=== PATIENT | male | born 1945 | race Caucasian/White ===

== ENCOUNTER 2018-05-25 11:01 | Inpatient (IN) | payer OTHER ==
[2018-05-25 11:57] VITALS: BMI 28.1
--- NOTE | 2018-05-25 14:00 | HP ---
CIWA Score Nausea/Vomitin Muscle Tremors: 3 Anxiety: 4-Mod. Anxious/Guarded Agitation: 0-Normal Activity Paroxysmal Sweats: No Perspiration Orientation: 0-Oriented Tacttile Disturbances: 0-None Auditory Disturbances: 0-None Visual Disturbances: 0-None Headache: 0-None Present CIWA-Ar Total Score: 10 - Admission Criteria OASAS Guidelines: Admission for Medically Managed Detox: Requires at least one of the followin. CIWA greater than 12 2. Seizures within the past 24 hours 3. Delirium tremens within the past 24 hours 4. Hallucinations within the past 24 hours 5. Acute intervention needed for co occurring medical disorder 6. Acute intervention needed for co occurring psychiatric disorder 7. Severe withdrawal that cannot be handled at a lower level of care (continued vomiting, continued diarrhea, abnormal vital signs) requiring intravenous medication and/or fluids 8. Admission ROS S - HPI Allergies/Adverse Reactions: Allergies Allergy/AdvReac Type Severity Reaction Status Date / Time No Known Allergies Allergy Verified 05/25/18 12:34 History of Present Illness: pt here requesting detox from etoh use , reports 1 x 6-pk /day x 50 years 22 oz cans , starts drinking in the afternoons, reports tremors if not drinking , + blackouts , denies seizures , denies driving after drinking alcohol, latest use this morning , most recent detox 20 years ago . Reports he is unable to stop on his own , current symptoms as above. tobacco : quit 15 years ago PMHX : anxiety , depression , denies SI / HI ,htn planning to have heart surgery 06/06/18 for valve replacement . Meds : see list PSHX : denies SHx : lives alone, retired Exam Limitations: No Limitations - Ebola screening Have you traveled outside of the country in the last 21 days: No Have you had contact with anyone from an Ebola affected area: No Have you been sick,other than usual withdrawal symptoms: No Do you have a fever: No - Review of Systems Constitutional: Other (reports feeling tired) EENT: reports: No Symptoms Reported, Other (reading glasses) Respiratory: reports: No Symptoms reported Cardiac: reports: No Symptoms Reported GI: reports: No Symptoms Reported : reports: No Symptoms Reported Musculoskeletal: reports: No Symptoms Reported Integumentary: reports: No Symptoms Reported Neuro: reports: No Symptoms reported Endocrine: reports: No Symptoms Reported Psychiatric: reports: Orientated x3 (denies current SI / HI .) Patient History - Patient Medical History Hx Asthma: No Hx Chronic Obstructive Pulmonary Disease (COPD): No Hx Cardiac Disorders: No Hx Hypertension: Yes Hx Seizures: No Hx Diabetes: No Hx Gastrointestinal Disorders: No Hx Genitourinary Disorders: No Hx Sexually Transmitted Disorders: No Hx Renal Disease (ESRD): No Hx Depression: Yes Hx Suicide Attempt: No Hx Schizophrenia: No - Patient Surgical History Past Surgical History: No - PPD History Previous Implant?: No - Smoking Cessation Smoking history: Former smoker Have you smoked in the past 12 months: No If you are a former smoker, when did you quit?: 15 yrs ago Hx Chewing Tobacco Use: No Initiated information on smoking cessation: No - Substances Abused Alcohol Route: Oral Frequency: Daily Amount used: 8-9 CANS BEER Age of first use: 17 Date of Last Use: 05/25/18 Admission Physical Exam [facility] - Vital Signs Vital Signs: Vital Signs - 24 hr 05/25/18 11:54 Temperature 97.7 F Pulse Rate 66 Respiratory 20 Rate Blood Pressure 130/72 - Physical General Appearance: Yes: No Apparent Distress HEENTM: Yes: EOMI, Hearing grossly Normal, Normocephalic, Normal Voice Respiratory: Yes: Chest Non-Tender, Lungs Clear, Normal Breath Sounds Neck: Yes: No masses,lesions,Nodules, Trachea in good position Cardiology: Yes: Regular Rhythm, Regular Rate, S1, S2, Murmur Abdominal: Yes: Soft Genitourinary: Yes: Within Normal Limits Back: Yes: Normal Inspection Musculoskeletal: Yes: full range of Motion, Gait Steady Extremities: Yes: Normal Range of Motion, Non-Tender Neurological: Yes: Motor Strength 5/5, Finger to Nose (w/ difficulty), Depressed Affect - Diagnostic (1) Alcohol abuse Current Visit: Yes Status: Acute S Breath Alcohol Content Breath Alcohol Content: 0.050 Urine Drug Screen - Results Drug Screen Negative: Yes Inpatient Rehab Admission - Rehab Decision to Admit Inpatient rehab admission?: No
[2018-05-25] MEDS ORDERED: MAGNESIUM HYDROX 2400MG/30ML ORAL SUSPENSION 30 ML CUP PO PRN (15:08)
[2018-05-25] MEDS ORDERED: MAGNESIUM CITRATE 300 ML BOTTLE PO PRN (15:08)
[2018-05-25] MEDS ORDERED: BISMUTH SUBSALICYLATE 524 MG/30 ML UD PO PRN (15:08)
[2018-05-25] MEDS ORDERED: IBUPROFEN 400 MG TABLET (FP) PO PRN (15:08)
[2018-05-25] MEDS ORDERED: MELATONIN 5 MG TABLETS PO PRN (15:08)
[2018-05-25] MEDS ORDERED: MENTHOL/PHENOL 1 EACH UD MM PRN (15:08)
[2018-05-25] MEDS ORDERED: ACETAMINOPHEN 325 MG TABLET (FP) PO PRN ×2 (15:08)
[2018-05-25] MEDS ORDERED: chlordiazePOXIDE HCL 10 MG CAPSULE PO PRN (15:08)
[2018-05-25] MEDS ORDERED: MAG HYDROX/AL HYDROX/SIMETH 30 ML UNIT-DOSE CUP PO PRN (15:08)
[2018-05-25] MEDS: METOPROLOL TARTRATE 50 MG TABLET (FP) PO SCH (22:26)
[2018-05-25] MEDS: MIRTAZAPINE 15 MG TABLET (FP) PO SCH (22:26)
[2018-05-25] MEDS: TAMSULOSIN HCL 0.4 MG CAP PO SCH (22:26)
[2018-05-25] MEDS: ATORVASTATIN CA 20 MG TABLET (FP) PO SCH (22:27)
[2018-05-25] MEDS: chlordiazePOXIDE HCL 25 MG CAPSULE PO SCH (22:27)
[2018-05-25] MEDS: THIAMINE HCL 100 MG TABLET (FP) PO SCH (22:28)
[2018-05-26] MEDS: chlordiazePOXIDE HCL 25 MG CAPSULE PO SCH ×2 (06:31→13:07)
--- NOTE | 2018-05-26 09:34 | CONSULT ---
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 Refer to addiction counselor's summary for further information Medical History: Significant for hypertension, dyslipidemia and heart valve abnormality(pending surgery) Psychiatric History: Reports being diagnosed with MDD 3-5 years ago. Reports receiving outpatient psychiatric treatment at one of [facility] clinics. He is under the care of Dr Danika Burroughs and he is prescribed Prozac 60 mg po daily and Remeron 15 mg po HS. Denies previous psychiatric hospitalization or suicidal attempt. At present, denies experiencing depressive symptoms, S/H ideations. However, reports sleeping poorly without remeron Physical/Sexual Abuse/Trauma History: Denies history of emotional, physical or sexual abuse as well as DV relationship. Reports serving for 2 years in the [employer] approximately 20 years ago Additional Comment: Denies legal history Mental Status Exam - Mental Status Exam Alert and Oriented to: Time, Place, Person Patient Appearance: Well Groomed Mood: Hopeful, Euthymic Affect: Appropriate Patient Behavior: Cooperative Speech Pattern: Clear Voice Loudness: Normal Thought Process: Intact, Goal Oriented Thought Disorder: Not Present Hallucinations: Denies Suicidal Ideation: Denies Homicidal Ideation: Denies Insight/Judgement: Poor Sleep: Poorly Appetite: Good Muscle strength/Tone: Normal Gait/Station: Normal Psychiatric Findings - Problem List ([place] 1, 2,3) (1) MDD (major depressive disorder) Current Visit: Yes Status: Chronic (2) Alcohol-induced sleep disorder Current Visit: Yes Status: Acute (3) Alcohol dependence with uncomplicated withdrawal Current Visit: Yes Status: Acute (4) HTN (hypertension) Current Visit: Yes Status: Chronic (5) HLD (hyperlipidemia) Current Visit: Yes Status: Chronic (6) Cardiac valvulopathy Current Visit: Yes Status: Chronic - Initial Treatment Plan Initial Treatment Plan: 1) Continue Prozac 60 mg po daily and Remeron 15 mg po HS. 2) Continue inpatient detoxification
[2018-05-26] MEDS ORDERED: FLUoxetine HCL 20 MG CAPSULE (FP) PO SCH (10:00)
[2018-05-26] MEDS: ASPIRIN 81 MG CHEWABLE TABLETS PO SCH (10:25)
[2018-05-26] MEDS: PRENATAL VITAMINS W/ FOLIC ACID TABLET (FP) PO SCH (10:25)
[2018-05-26] MEDS: METOPROLOL TARTRATE 50 MG TABLET (FP) PO SCH ×2 (10:25→22:13)
[2018-05-26] MEDS: FLUoxetine HCL 20 MG CAPSULE (FP) PO SCH (10:26)
[2018-05-26 11:09] LABS: HEMATOCRIT 32.1 % (35.4-49); MCH 33.5 pg (25.7-33.7); MCHC 34.4 g/dl (32.0-35.9); MEAN CELL VOLUME 97.6 fl (80-96); MEAN PLT VOLUME 9.8 fl (7.5-11.1); PLATELET COUNT 173 K/MM3 (134-434); RBC 3.29 M/mm3 (4.00-5.60); WHITE BLOOD COUNT 5.3 K/mm3 (4.0-10.0)
[2018-05-26 11:48] LABS: ALBUMIN 3.9 g/dl (3.4-5.0); ALK PHOS 91 U/L (45-117); ANION GAP 8 MMOL/L (8-16); BILIRUBIN,TOTAL 0.6 mg/dL (0.2-1); BLOOD UREA NITROGEN 15 mg/dL (7-18); CALCIUM 8.8 mg/dL (8.5-10.1); CHLORIDE 102 mmol/L (98-107); CO2 25 mmol/L (21-32); CREATININE 1.4 mg/dL (0.55-1.3); GLUCOSE,RANDOM 152 mg/dL (74-106); POTASSIUM 4.2 mmol/L (3.5-5.1); SGOT/AST 71 U/L (15-37); SGPT/ALT 48 U/L (13-61); SODIUM 135 mmol/L (136-145); TOT PROT 6.8 g/dl (6.4-8.2)
--- NOTE | 2018-05-26 13:33 | PN ---
S CIWA - CIWA Score Nausea/Vomitin Muscle Tremors: 2 Anxiety: 2 Agitation: 2 Paroxysmal Sweats: 2 Orientation: 0-Oriented Tacttile Disturbances: 1-Very Mild Itch/Numbness Auditory Disturbances: 1-Very Mild Visual Disturbances: 0-None Headache: 2-Mild CIWA-Ar Total Score: 14 S Progress Note (SOAP) Subjective: alert,irritable,anxious,interrupted sleep,tremor Objective: 05/26/18 13:32 Vital Signs Temperature 98.2 F 05/26/18 10:00 Pulse Rate 72 05/26/18 10:00 Respiratory Rate 18 05/26/18 10:00 Blood Pressure 121/68 05/26/18 10:00 O2 Sat by Pulse Oximetry (%) 05/26/18 13:32 05/26/18 05/26/18 06:30 06:30 WBC 5.3 RBC 3.29 L Hgb 11.0 L Hct 32.1 L MCV 97.6 H MCHC 34.4 RDW 14.0 Plt Count 173 Sodium 135 L Potassium 4.2 Chloride 102 Carbon Dioxide 25 Anion Gap 8 BUN 15 Creatinine 1.4 H labs pending Assessment: 05/26/18 13:33 withdrawal symptom Plan: continue detox
[2018-05-26] MEDS: THIAMINE HCL 100 MG TABLET (FP) PO SCH (22:12)
[2018-05-26] MEDS: chlordiazePOXIDE 5 MG CAPSULE PO SCH (22:13)
[2018-05-26] MEDS: TAMSULOSIN HCL 0.4 MG CAP PO SCH (22:13)
[2018-05-26] MEDS: MIRTAZAPINE 15 MG TABLET (FP) PO SCH (22:13)
[2018-05-26] MEDS: ATORVASTATIN CA 20 MG TABLET (FP) PO SCH (22:13)
[2018-05-27] MEDS: chlordiazePOXIDE 5 MG CAPSULE PO SCH ×2 (05:58→14:20)
[2018-05-27] MEDS: FLUoxetine HCL 20 MG CAPSULE (FP) PO SCH (10:12)
[2018-05-27] MEDS: ASPIRIN 81 MG CHEWABLE TABLETS PO SCH (10:12)
[2018-05-27] MEDS: METOPROLOL TARTRATE 50 MG TABLET (FP) PO SCH ×2 (10:12→22:11)
[2018-05-27] MEDS: PRENATAL VITAMINS W/ FOLIC ACID TABLET (FP) PO SCH (10:12)
--- NOTE | 2018-05-27 13:33 | PN ---
S CIWA - CIWA Score Nausea/Vomitin Muscle Tremors: 2 Anxiety: 2 Agitation: 2 Paroxysmal Sweats: 1-Minimal Palms Moist Orientation: 0-Oriented Tacttile Disturbances: 1-Very Mild Itch/Numbness Auditory Disturbances: 1-Very Mild Visual Disturbances: 0-None Headache: 2-Mild CIWA-Ar Total Score: 13 B[facility] Progress Note (SOAP) Subjective: alert,irritable,anxious,interrupted sleep,tremor Objective: 05/27/18 13:30 Vital Signs Temperature 99.6 F 05/27/18 09:43 Pulse Rate 65 05/27/18 09:43 Respiratory Rate 18 05/27/18 09:43 Blood Pressure 101/59 L 05/27/18 09:43 O2 Sat by Pulse Oximetry (%) 05/27/18 13:30 Laboratory Last Values WBC 5.3 K/mm3 (4.0-10.0) 05/26/18 06:30 RBC 3.29 M/mm3 (4.00-5.60) L 05/26/18 06:30 Hgb 11.0 GM/dL (11.7-16.9) L 05/26/18 06:30 Hct 32.1 % (35.4-49) L 05/26/18 06:30 MCV 97.6 fl (80-96) H 05/26/18 06:30 MCH 33.5 pg (25.7-33.7) 05/26/18 06:30 MCHC 34.4 g/dl (32.0-35.9) 05/26/18 06:30 RDW 14.0 % (11.9-15.9) 05/26/18 06:30 Plt Count 173 K/MM3 (134-434) 05/26/18 06:30 MPV 9.8 fl (7.5-11.1) 05/26/18 06:30 Sodium 135 mmol/L (136-145) L 05/26/18 06:30 Potassium 4.2 mmol/L (3.5-5.1) 05/26/18 06:30 Chloride 102 mmol/L (98-107) 05/26/18 06:30 Carbon Dioxide 25 mmol/L (21-32) 05/26/18 06:30 Anion Gap 8 MMOL/L (8-16) 05/26/18 06:30 BUN 15 mg/dL (7-18) 05/26/18 06:30 Creatinine 1.4 mg/dL (0.55-1.3) H 05/26/18 06:30 Creat Clearance w eGFR 49.68 (>60) 05/26/18 06:30 Random Glucose 152 mg/dL (74-106) H 05/26/18 06:30 Calcium 8.8 mg/dL (8.5-10.1) 05/26/18 06:30 Total Bilirubin 0.6 mg/dL (0.2-1) 05/26/18 06:30 AST 71 U/L (15-37) H 05/26/18 06:30 ALT 48 U/L (13-61) 05/26/18 06:30 Alkaline Phosphatase 91 U/L (45-117) 05/26/18 06:30 Total Protein 6.8 g/dl (6.4-8.2) 05/26/18 06:30 Albumin 3.9 g/dl (3.4-5.0) 05/26/18 06:30 RPR Titer Nonreactive (NONREACTIVE) 05/26/18 06:30 Assessment: 05/27/18 13:31 withdrawal symptom Plan: continue detox,possible discharge in am,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
[2018-05-27] MEDS ORDERED: chlordiazePOXIDE HCL 10 MG CAPSULE PO PRN (21:00)
[2018-05-27] MEDS: THIAMINE HCL 100 MG TABLET (FP) PO SCH (22:11)
[2018-05-27] MEDS: chlordiazePOXIDE HCL 10 MG CAPSULE PO SCH (22:11)
[2018-05-27] MEDS: MIRTAZAPINE 15 MG TABLET (FP) PO SCH (22:11)
[2018-05-27] MEDS: ATORVASTATIN CA 20 MG TABLET (FP) PO SCH (22:11)
[2018-05-27] MEDS: TAMSULOSIN HCL 0.4 MG CAP PO SCH (22:11)
[2018-05-28] MEDS: chlordiazePOXIDE HCL 10 MG CAPSULE PO SCH (07:43)
[2018-05-28 09:28] VITALS: BP 166/79; PULSE 52; TEMP 97.8
[2018-05-28] MEDS: PRENATAL VITAMINS W/ FOLIC ACID TABLET (FP) PO SCH (09:38)
[2018-05-28] MEDS: FLUoxetine HCL 20 MG CAPSULE (FP) PO SCH (09:38)
[2018-05-28] MEDS: ASPIRIN 81 MG CHEWABLE TABLETS PO SCH (09:38)
[2018-05-28] MEDS: METOPROLOL TARTRATE 50 MG TABLET (FP) PO SCH (09:38)
--- NOTE | 2018-05-28 15:12 | PN ---
S Progress Note (SOAP) Subjective: no new complaints Objective: 05/28/18 15:09 A & O x 3 gait steady Vital Signs Temperature 97.8 F 05/28/18 09:27 Pulse Rate 52 L 05/28/18 09:27 Respiratory Rate 18 05/28/18 09:27 Blood Pressure 166/79 05/28/18 09:27 O2 Sat by Pulse Oximetry (%) Assessment: 05/28/18 15:11 detox completed Plan: for d/c
--- NOTE | 2018-05-28 15:14 | DS ---
[facility] Detox Discharge Summary Admission Date: 05/25/18 Discharge Date: 05/28/18 - History Additional Comments: Pt discharged Declined aftercare services Will be going home states he "will try" to attend AA meeting - Physical Exam Results Vital Signs: Vital Signs Temperature 97.8 F 05/28/18 09:27 Pulse Rate 52 L 05/28/18 09:27 Respiratory Rate 18 05/28/18 09:27 Blood Pressure 166/79 05/28/18 09:27 O2 Sat by Pulse Oximetry (%) - Treatment Hospital Course: Detox Protocol Followed, Detoxed Safely, Responded well, Discharged Condition Good - Medication Discharge Medications: Ambulatory Orders Alfuzosin HCl [Alfuzosin HCl ER] 10 mg PO HS 05/25/18 Aspirin [ASA -] 81 mg PO DAILY 05/25/18 Cyanocobalamin [Vitamin B12 -] 500 mcg PO DAILY 05/25/18 Fluoxetine HCl [Prozac -] 20 mg PO DAILY 05/25/18 Metoprolol Tartrate [Lopressor -] 50 mg PO BID 05/25/18 Mirtazapine [Remeron -] 15 mg PO HS 05/25/18 Multivitamin [Multiple Vitamins] 1 each PO DAILY 05/25/18 Simvastatin [Zocor -] 40 mg PO HS 05/25/18 - AMA Did Patient Leave Against Medical Advice: No
== END 2018-05-28 10:03 | disposition home or self-care (01) | DRG 775 ==
LOC: YASAS 11:01 → Y6N 15:18
PROVIDERS: ADMIT Surgery; ATTEND Surgery
PROC: HZ2ZZZZ Detoxification Services for Substance Abuse Treatment (ICD-10-PCS; principal; 2018-05-25)
DX: F10.230 Alcohol dependence with withdrawal, uncomplicated (principal); F10.282 Alcohol dependence with alcohol-induced sleep disorder; F33.9 Major depressive disorder, recurrent, unspecified; I10 Essential (primary) hypertension; E78.5 Hyperlipidemia, unspecified; I38 Endocarditis, valve unspecified
CPT/HCPCS: 36415; 80053; 85027; 86593

== ENCOUNTER 2018-09-17 08:47 | Inpatient (IN) | payer OTHER ==
[2018-09-17 09:15] VITALS: BMI 27.5
--- NOTE | 2018-09-17 09:55 | HP ---
CIWA Score Nausea/Vomitin-Mild Nausea/No Vomiting Muscle Tremors: 3 Anxiety: 4-Mod. Anxious/Guarded Agitation: 1-Slight > Activity Paroxysmal Sweats: No Perspiration Orientation: 1-Uncertain about Date Tacttile Disturbances: 0-None Auditory Disturbances: 1-Very Mild Visual Disturbances: 1-Very Mild Sensitivity Headache: 2-Mild CIWA-Ar Total Score: 14 - Admission Criteria OASAS Guidelines: Admission for Medically Managed Detox: Requires at least one of the followin. CIWA greater than 12 2. Seizures within the past 24 hours 3. Delirium tremens within the past 24 hours 4. Hallucinations within the past 24 hours 5. Acute intervention needed for co occurring medical disorder 6. Acute intervention needed for co occurring psychiatric disorder 7. Severe withdrawal that cannot be handled at a lower level of care (continued vomiting, continued diarrhea, abnormal vital signs) requiring intravenous medication and/or fluids 8. Patient presents the following: CIWA greater than 12 Admission Criteria Met: Admission criteria met Admission ROS [facility] - HPI Chief Complaint: I can't control my drinking - I drink morning, noon and night Allergies/Adverse Reactions: Allergies Allergy/AdvReac Type Severity Reaction Status Date / Time No Known Allergies Allergy Verified 09/17/18 08:56 History of Present Illness: 72 yo gentleman here for detox from alcohol - second time in detox, previously here05/25/18 but did not f/u with outpatient rehab or 12 step meetings. Patient states he drinks all day, denies seizures but does have black outs. Also with history of depression - sees psych and on meds for same. noted urine tox + methamphetamines - patient denies using any - possible false positive related to prozac Exam Limitations: No Limitations - Ebola screening Have you traveled outside of the country in the last 21 days: No (N) Have you had contact with anyone from an Ebola affected area: No Do you have a fever: No - Review of Systems Constitutional: Loss of Appetite, Malaise, Changes in sleep EENT: reports: No Symptoms Reported Respiratory: reports: No Symptoms reported Cardiac: reports: Lightheadedness GI: reports: Nausea, Poor Appetite, Abdominal cramping : reports: Frequency Musculoskeletal: reports: No Symptoms Reported Integumentary: reports: Dryness Neuro: reports: Headache, Tremors Endocrine: reports: No Symptoms Reported Hematology: reports: No Symptoms Reported Psychiatric: reports: Judgement Intact, Mood/Affect Appropiate, Anxious Other Systems: Reviewed and Negative Patient History - Patient Medical History Hx Asthma: No Hx Chronic Obstructive Pulmonary Disease (COPD): No Hx Cancer: Yes (throat cancer - tx with radiation 2003) Hx Cardiac Disorders: No Hx Hypertension: Yes (on meds) Hx Hypercholesterolemia: Yes (on meds) Hx Pacemaker: No HX Cerebrovascular Accident: No Hx Seizures: No Hx Diabetes: No Hx Gastrointestinal Disorders: No Hx Liver Disease: Yes (elevated LFTs) Hx Genitourinary Disorders: Yes (BPH - on meds) Hx Sexually Transmitted Disorders: No Hx Renal Disease (ESRD): Yes (renal insufficiency) Hx Thyroid Disease: No Hx Human Immunodeficiency Virus (HIV): No Hx Hepatitis C: No Hx Depression: Yes (on meds - sees psych monthly) Hx Suicide Attempt: No (denies) Hx Schizophrenia: No - Patient Surgical History Past Surgical History: No - PPD History Date: 05/27/18 - Reproductive History Patient is a Female of Child Bearing Age (11 -55 yrs old): No - Smoking Cessation Smoking history: Former smoker Have you smoked in the past 12 months: No If you are a former smoker, when did you quit?: 15 yrs ago Hx Chewing Tobacco Use: No Initiated information on smoking cessation: No - Substance & Tx. History Hx Alcohol Use: Yes Hx Substance Use: No Substance Use Type: Alcohol Hx Substance Use Treatment: Yes (detox) - Substances abused Alcohol Substance route: Oral Frequency: Daily Amount used: 6 22oz can beer Age of first use: 18 Date of last use: 09/17/18 Family Disease History - Family Disease History Family Disease History: Heart Disease: Mother (,), CA: Brother (two - - colon cancer), Other: Father ( - no sure why), Mother, Brother, Sister (one living ) Admission Physical Exam [facility] - Vital Signs Vital Signs: Vital Signs - 24 hr 09/17/18 08:51 Temperature 98.5 F Pulse Rate 63 Respiratory 17 Rate Blood Pressure 105/66 - Physical General Appearance: Yes: Nourished, Appropriately Dressed, Moderate Distress, Tremorous, Anxious HEENTM: Yes: EOMI, Normocephalic, Normal Voice, Pharynx Normal, Hearing Decreased, Other (bulbous nose; coated tongue) Respiratory: Yes: Normal Breath Sounds, No Respiratory Distress Neck: Yes: No masses,lesions,Nodules, Supple Breast: Yes: Breast Exam Deferred Cardiology: Yes: Regular Rhythm, Regular Rate Abdominal: Yes: Flat, Soft Genitourinary: Yes: Frequency, Nocturia Back: Yes: Normal Inspection Musculoskeletal: Yes: full range of Motion, Gait Steady Extremities: Yes: Normal Range of Motion, Non-Tender, Other (prominent varicosities both lower extremities) Neurological: Yes: Alert, Motor Strength 5/5, Normal Mood/Affect, Normal Response Integumentary: Yes: Normal Color, Warm, Other (left inner arm with large purplish bruise (does not know why)) Lymphatic: Yes: Within Normal Limits - Diagnostic (1) Alcohol dependence with uncomplicated withdrawal Current Visit: Yes Status: Acute (2) Renal insufficiency Current Visit: Yes Status: Chronic (3) BPH (benign prostatic hyperplasia) Current Visit: Yes Status: Chronic Qualifiers: Lower urinary tract symptom presence: symptoms present Lower urinary tract symptom detail: nocturia Qualified Code(s): N40.1 - Benign prostatic hyperplasia with lower urinary tract symptoms; R35.1 - Nocturia (4) History of throat cancer Current Visit: Yes Status: Resolved (5) HLD (hyperlipidemia) Current Visit: Yes Status: Chronic Qualifiers: Hyperlipidemia type: unspecified Qualified Code(s): E78.5 - Hyperlipidemia , unspecified (6) HTN (hypertension) Current Visit: Yes Status: Chronic Qualifiers: Hypertension type: essential hypertension Qualified Code(s): I10 - Essential (primary) hypertension (7) Varicose veins of both lower extremities Current Visit: Yes Status: Acute Cleared for Admission S - Detox or Rehab [facility] Level of Care: Medically Managed Detox Regimen/Protocol: Librium Breathalyzer - Breathalyzer Breathalyzer: 0.213 Urine Drug Screen - Test Device Lot number: [id number] Expiration date: 07/05/20 - Control Is test valid?: Yes - Results Drug screen NEGATIVE: No Urine drug screen results: MET-Methamphetamine Inpatient Rehab Admission - Rehab Decision to Admit Inpatient rehab admission?: No
[2018-09-17] MEDS ORDERED: hydrOXYzine PAMOATE 25 MG CAPSULE (FP) PO PRN (10:13)
[2018-09-17] MEDS ORDERED: MAGNESIUM HYDROX 2400MG/30ML ORAL SUSPENSION 30 ML CUP PO PRN (10:13)
[2018-09-17] MEDS ORDERED: BISMUTH SUBSALICYLATE 524 MG/30 ML UD PO PRN (10:13)
[2018-09-17] MEDS ORDERED: chlordiazePOXIDE HCL 25 MG CAPSULE PO PRN (10:13)
[2018-09-17] MEDS ORDERED: MELATONIN 5 MG TABLETS PO PRN (10:13)
[2018-09-17] MEDS ORDERED: MAGNESIUM CITRATE 300 ML BOTTLE PO PRN (10:13)
[2018-09-17] MEDS ORDERED: chlordiazePOXIDE HCL 25 MG CAPSULE PO ONE (10:13)
[2018-09-17] MEDS ORDERED: METHOCARBAMOL 500 MG TABLET PO PRN (10:13)
[2018-09-17] MEDS ORDERED: ACETAMINOPHEN 325 MG TABLET (FP) PO PRN (10:13)
[2018-09-17] MEDS ORDERED: MENTHOL/PHENOL 1 EACH UD MM PRN (10:13)
[2018-09-17] MEDS ORDERED: MAG HYDROX/AL HYDROX/SIMETH 30 ML UNIT-DOSE CUP PO PRN (10:13)
[2018-09-17] MEDS ORDERED: hydrOXYzine HCL 25 MG TABLET (FP) PO PRN (11:18)
[2018-09-17] MEDS: chlordiazePOXIDE HCL 25 MG CAPSULE PO SCH ×3 (12:03→22:07)
[2018-09-17 15:27] LABS: HEMATOCRIT 33.6 % (35.4-49); HEMOGLOBIN 11.5 GM/dL (11.7-16.9); MCHC 34.2 g/dl (32.0-35.9); MEAN CELL VOLUME 96.5 fl (80-96); MEAN PLT VOLUME 7.6 fl (7.5-11.1); RBC 3.48 M/mm3 (4.00-5.60); RDW 13.6 % (11.9-15.9); WHITE BLOOD COUNT 6.4 K/mm3 (4.0-10.0)
[2018-09-17 15:40] LABS: PLATELET COUNT 242 K/MM3 (134-434)
[2018-09-17 16:12] LABS: ALBUMIN 3.9 g/dl (3.4-5.0); BILIRUBIN,TOTAL 0.4 mg/dL (0.2-1); BLOOD UREA NITROGEN 15.8 mg/dL (7-18); CALCIUM 8.5 mg/dL (8.5-10.1); CREATININE 1.2 mg/dL (0.55-1.3); POTASSIUM 4.5 mmol/L (3.5-5.1); TOT PROT 7.2 g/dl (6.4-8.2)
--- NOTE | 2018-09-17 16:13 | EKG ---
Test Reason : Blood Pressure : / mmHG Vent. Rate : 065 BPM Atrial Rate : 065 BPM P-R Int : 198 ms QRS Dur : 132 ms QT Int : 428 ms P-R-T Axes : 061 -32 050 degrees QTc Int : 445 ms NORMAL SINUS RHYTHM LEFT AXIS DEVIATION NON-SPECIFIC INTRA-VENTRICULAR CONDUCTION BLOCK ABNORMAL ECG NO PREVIOUS ECGS AVAILABLE Confirmed by RG CHAMPAGNE, BETTY ([id number]) on 09/17/2018 4:13:31 PM Referred By: CJ NEFF Confirmed By:BETTY DIEZ MD
[2018-09-17] MEDS: ATORVASTATIN CA 10 MG TABLET (FP) PO SCH (22:07)
[2018-09-17] MEDS: THIAMINE HCL 100 MG TABLET (FP) PO SCH (22:07)
[2018-09-17] MEDS: METOPROLOL TARTRATE 50 MG TABLET (FP) PO SCH (22:07)
[2018-09-17 23:14] LABS: URINE APPEARANCE CLEAR; URINE BILIRUBIN NEGATIVE (NEGATIVE); URINE COLOR YELLOW; URINE GLUCOSE (UA) NEGATIVE (NEGATIVE); URINE KETONE NEGATIVE (NEGATIVE); URINE LEUK ESTERASE NEGATIVE (NEGATIVE); URINE NITRITE NEGATIVE (NEGATIVE); URINE PROTEIN NEGATIVE (NEGATIVE); URINE UROBILINOGEN 0.2 mg/dL (0.2-1.0)
[2018-09-18] MEDS: chlordiazePOXIDE HCL 25 MG CAPSULE PO SCH ×4 (05:50→22:20)
--- NOTE | 2018-09-18 08:05 | CONSULT ---
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 Refer to addiction counselor's summary for further information Medical History: Significant for hypertension, dyslipidemia and cardiac valvulopathy(pending surgery), BPH, renal insufficiency and history of radiaton treatment i 2003 for throat cancer. Psychiatric History: Patient is known to scientific writer from a recent encounter during an admission to this facility in May 2018. Historica narrative remains consistent. He reports being diagnosed with MDD 3-5 years ago. Reports receiving outpatient psychiatric treatment at one of [facility] clinics. He is under the care of Dr Danika Burroughs and he is prescribed Prozac 60 mg po daily and Remeron 15 mg po HS. Denies previous psychiatric hospitalization or suicidal attempt. At present, denies experiencing depressive symptoms, S/H ideations. However, reports sleeping poorly. Told scientific writer that he only takes half of Remeron tablet. Physical/Sexual Abuse/Trauma History: Denies history of emotional, physical or sexual abuse as well as DV relationship. Reports serving for 2 years in the [employer] approximately more than 40 years ago Additional Comment: Denies legal history Mental Status Exam - Mental Status Exam Alert and Oriented to: Time, Place, Person Cognitive Function: Fair Patient Appearance: Well Groomed Mood: Hopeful, Euthymic Patient Behavior: Cooperative Speech Pattern: Clear Voice Loudness: Normal Thought Process: Intact, Goal Oriented Hallucinations: Denies Suicidal Ideation: Denies Homicidal Ideation: Denies Insight/Judgement: Poor Sleep: Poorly Appetite: Good, Poor Muscle strength/Tone: Normal Gait/Station: Normal Psychiatric Findings - Problem List ([place] 1, 2,3) (1) MDD (major depressive disorder) Current Visit: No Status: Chronic (2) Alcohol-induced sleep disorder Current Visit: Yes Status: Acute (3) Alcohol dependence with uncomplicated withdrawal Current Visit: Yes Status: Acute (4) HLD (hyperlipidemia) Current Visit: Yes Status: Chronic Qualifiers: Hyperlipidemia type: unspecified Qualified Code(s): E78.5 - Hyperlipidemia , unspecified (5) HTN (hypertension) Current Visit: Yes Status: Chronic Qualifiers: Hypertension type: essential hypertension Qualified Code(s): I10 - Essential (primary) hypertension (6) Varicose veins of both lower extremities Current Visit: Yes Status: Chronic (7) BPH (benign prostatic hyperplasia) Current Visit: Yes Status: Chronic Qualifiers: Lower urinary tract symptom presence: symptoms present Lower urinary tract symptom detail: nocturia Qualified Code(s): N40.1 - Benign prostatic hyperplasia with lower urinary tract symptoms; R35.1 - Nocturia (8) Renal insufficiency Current Visit: Yes Status: Chronic (9) History of throat cancer Current Visit: Yes Status: Resolved - Initial Treatment Plan Initial Treatment Plan: 1) Continue Prozac 60 mg po daily and Remeron 7.5 mg po HS. 2) Continue inpatient detoxification
--- NOTE | 2018-09-18 09:52 | PN ---
[facility] CIWA - CIWA Score Nausea/Vomitin-Mild Nausea/No Vomiting Muscle Tremors: 3 Anxiety: 3 Agitation: 2 Paroxysmal Sweats: 1-Minimal Palms Moist Orientation: 1-Uncertain about Date Tacttile Disturbances: 0-None Auditory Disturbances: 0-None Visual Disturbances: 0-None Headache: 2-Mild CIWA-Ar Total Score: 13 S Progress Note (SOAP) Subjective: 72 years old male admitted on 09/17/18 for alcohol withdrawal sx medical history of hypertension, hyper lipidemia, bph and depression treated with prozac and remoron compliance with bp medication - well controlled external medication reviewed that the patient is taking proscar for bph plavix for cardiac valve insufficiency begin proscar and plavix Objective: 09/18/18 10:01 Vital Signs Temperature 98.7 F 09/18/18 09:23 Pulse Rate 95 H 09/18/18 09:23 Respiratory Rate 18 09/18/18 09:23 Blood Pressure 134/92 09/18/18 09:23 O2 Sat by Pulse Oximetry (%) Laboratory Last Values WBC 6.4 K/mm3 (4.0-10.0) 09/17/18 10:15 RBC 3.48 M/mm3 (4.00-5.60) L 09/17/18 10:15 Hgb 11.5 GM/dL (11.7-16.9) L 09/17/18 10:15 Hct 33.6 % (35.4-49) L 09/17/18 10:15 MCV 96.5 fl (80-96) H 09/17/18 10:15 MCH 33.0 pg (25.7-33.7) 09/17/18 10:15 MCHC 34.2 g/dl (32.0-35.9) 09/17/18 10:15 RDW 13.6 % (11.9-15.9) 09/17/18 10:15 Plt Count 242 K/MM3 (134-434) D 09/17/18 10:15 MPV 7.6 fl (7.5-11.1) D 09/17/18 10:15 Sodium 136 mmol/L (136-145) 09/17/18 10:15 Potassium 4.5 mmol/L (3.5-5.1) 09/17/18 10:15 Chloride 102 mmol/L (98-107) 09/17/18 10:15 Carbon Dioxide 25 mmol/L (21-32) 09/17/18 10:15 Anion Gap 10 MMOL/L (8-16) 09/17/18 10:15 BUN 15.8 mg/dL (7-18) 09/17/18 10:15 Creatinine 1.2 mg/dL (0.55-1.3) 09/17/18 10:15 Est GFR (CKD-EPI)AfAm 69.11 09/17/18 10:15 Est GFR (CKD-EPI)NonAf 59.63 09/17/18 10:15 Random Glucose 73 mg/dL (74-106) L 09/17/18 10:15 Calcium 8.5 mg/dL (8.5-10.1) 09/17/18 10:15 Total Bilirubin 0.4 mg/dL (0.2-1) 09/17/18 10:15 AST 60 U/L (15-37) H 09/17/18 10:15 ALT 29 U/L (13-61) 09/17/18 10:15 Alkaline Phosphatase 96 U/L (45-117) 09/17/18 10:15 Total Protein 7.2 g/dl (6.4-8.2) 09/17/18 10:15 Albumin 3.9 g/dl (3.4-5.0) 09/17/18 10:15 Urine Color Yellow 09/17/18 11:00 Urine Appearance Clear 09/17/18 11:00 Urine pH 5.0 (5.0-8.0) 09/17/18 11:00 Ur Specific [place] 1.006 (1.010-1.035) L 09/17/18 11:00 Urine Protein Negative (NEGATIVE) 09/17/18 11:00 Urine Glucose (UA) Negative (NEGATIVE) 09/17/18 11:00 Urine Ketones Negative (NEGATIVE) 09/17/18 11:00 Urine Blood Negative (NEGATIVE) 09/17/18 11:00 Urine Nitrite Negative (NEGATIVE) 09/17/18 11:00 Urine Bilirubin Negative (NEGATIVE) 09/17/18 11:00 Urine Urobilinogen 0.2 mg/dL (0.2-1.0) 09/17/18 11:00 Ur Leukocyte Esterase Negative (NEGATIVE) 09/17/18 11:00 lab noted Assessment: 09/18/18 10:02 alcohol withdrawal sx Plan: continue alcohol detox
[2018-09-18] MEDS: ASPIRIN 81 MG CHEWABLE TABLETS PO SCH (10:14)
[2018-09-18] MEDS: PRENATAL VITAMINS W/ FOLIC ACID TABLET (FP) PO SCH (10:14)
[2018-09-18] MEDS: METOPROLOL TARTRATE 50 MG TABLET (FP) PO SCH ×2 (10:14→22:20)
[2018-09-18] MEDS: FLUoxetine HCL 20 MG CAPSULE (FP) PO SCH (11:15)
[2018-09-18] MEDS: RANITIDINE HCL 150 MG TABLET (FP) PO SCH ×2 (11:15→22:20)
[2018-09-18] MEDS: CLOPIDOGREL BISULFATE 75 MG TABLET (FP) PO SCH (11:15)
[2018-09-18] MEDS: FINASTERIDE 5 MG TABLET (FP) PO SCH (12:28)
[2018-09-18] MEDS: ATORVASTATIN CA 10 MG TABLET (FP) PO SCH (22:20)
[2018-09-18] MEDS: THIAMINE HCL 100 MG TABLET (FP) PO SCH (22:20)
[2018-09-18] MEDS: MIRTAZAPINE 15 MG TABLET (FP) PO SCH (22:21)
[2018-09-19] MEDS: chlordiazePOXIDE HCL 25 MG CAPSULE PO SCH ×4 (05:20→22:07)
--- NOTE | 2018-09-19 09:34 | PN ---
[facility] CIWA - CIWA Score Nausea/Vomitin-Mild Nausea/No Vomiting Muscle Tremors: 2 Anxiety: 3 Agitation: 4-Moderately Restless Paroxysmal Sweats: 1-Minimal Palms Moist Orientation: 0-Oriented Tacttile Disturbances: 1-Very Mild Itch/Numbness Auditory Disturbances: 0-None Visual Disturbances: 0-None Headache: 0-None Present CIWA-Ar Total Score: 12 S Progress Note (SOAP) Subjective: ambulating on hallway, discuss risks of cardiac health problems related to alcohol misuse reported support system at home "live along" goes to meeting 3-4 / week was doing well problem "once started can not stop" good insight determines to maintain sober Objective: 09/19/18 09:33 Vital Signs Temperature 98.4 F 09/19/18 09:08 Pulse Rate 63 09/19/18 09:08 Respiratory Rate 18 09/19/18 09:08 Blood Pressure 123/66 09/19/18 09:08 O2 Sat by Pulse Oximetry (%) Laboratory Last Values WBC 6.4 K/mm3 (4.0-10.0) 09/17/18 10:15 RBC 3.48 M/mm3 (4.00-5.60) L 09/17/18 10:15 Hgb 11.5 GM/dL (11.7-16.9) L 09/17/18 10:15 Hct 33.6 % (35.4-49) L 09/17/18 10:15 MCV 96.5 fl (80-96) H 09/17/18 10:15 MCH 33.0 pg (25.7-33.7) 09/17/18 10:15 MCHC 34.2 g/dl (32.0-35.9) 09/17/18 10:15 RDW 13.6 % (11.9-15.9) 09/17/18 10:15 Plt Count 242 K/MM3 (134-434) D 09/17/18 10:15 MPV 7.6 fl (7.5-11.1) D 09/17/18 10:15 Sodium 136 mmol/L (136-145) 09/17/18 10:15 Potassium 4.5 mmol/L (3.5-5.1) 09/17/18 10:15 Chloride 102 mmol/L (98-107) 09/17/18 10:15 Carbon Dioxide 25 mmol/L (21-32) 09/17/18 10:15 Anion Gap 10 MMOL/L (8-16) 09/17/18 10:15 BUN 15.8 mg/dL (7-18) 09/17/18 10:15 Creatinine 1.2 mg/dL (0.55-1.3) 09/17/18 10:15 Est GFR (CKD-EPI)AfAm 69.11 09/17/18 10:15 Est GFR (CKD-EPI)NonAf 59.63 09/17/18 10:15 Random Glucose 73 mg/dL (74-106) L 09/17/18 10:15 Calcium 8.5 mg/dL (8.5-10.1) 09/17/18 10:15 Total Bilirubin 0.4 mg/dL (0.2-1) 09/17/18 10:15 AST 60 U/L (15-37) H 09/17/18 10:15 ALT 29 U/L (13-61) 09/17/18 10:15 Alkaline Phosphatase 96 U/L (45-117) 09/17/18 10:15 Total Protein 7.2 g/dl (6.4-8.2) 09/17/18 10:15 Albumin 3.9 g/dl (3.4-5.0) 09/17/18 10:15 Urine Color Yellow 09/17/18 11:00 Urine Appearance Clear 09/17/18 11:00 Urine pH 5.0 (5.0-8.0) 09/17/18 11:00 Ur Specific [place] 1.006 (1.010-1.035) L 09/17/18 11:00 Urine Protein Negative (NEGATIVE) 09/17/18 11:00 Urine Glucose (UA) Negative (NEGATIVE) 09/17/18 11:00 Urine Ketones Negative (NEGATIVE) 09/17/18 11:00 Urine Blood Negative (NEGATIVE) 09/17/18 11:00 Urine Nitrite Negative (NEGATIVE) 09/17/18 11:00 Urine Bilirubin Negative (NEGATIVE) 09/17/18 11:00 Urine Urobilinogen 0.2 mg/dL (0.2-1.0) 09/17/18 11:00 Ur Leukocyte Esterase Negative (NEGATIVE) 09/17/18 11:00 RPR Titer Nonreactive (NONREACTIVE) 09/17/18 10:15 lab noted report bp elevation during detox "lower after the detox" 09/19/18 09:33 Assessment: 09/19/18 09:33 alcohol withdrawal sx 09/19/18 09:35 hypertension encourage librium prn when systolic above 140 Plan: continue alcohol detox
[2018-09-19] MEDS: FLUoxetine HCL 20 MG CAPSULE (FP) PO SCH (10:02)
[2018-09-19] MEDS: METOPROLOL TARTRATE 50 MG TABLET (FP) PO SCH ×2 (10:02→22:07)
[2018-09-19] MEDS: CLOPIDOGREL BISULFATE 75 MG TABLET (FP) PO SCH (10:02)
[2018-09-19] MEDS: RANITIDINE HCL 150 MG TABLET (FP) PO SCH ×2 (10:02→22:07)
[2018-09-19] MEDS: ASPIRIN 81 MG CHEWABLE TABLETS PO SCH (10:02)
[2018-09-19] MEDS: PRENATAL VITAMINS W/ FOLIC ACID TABLET (FP) PO SCH (10:55)
[2018-09-19] MEDS: FINASTERIDE 5 MG TABLET (FP) PO SCH (10:55)
[2018-09-19] MEDS: MIRTAZAPINE 15 MG TABLET (FP) PO SCH (22:07)
[2018-09-19] MEDS: THIAMINE HCL 100 MG TABLET (FP) PO SCH (22:07)
[2018-09-19] MEDS: ATORVASTATIN CA 10 MG TABLET (FP) PO SCH (22:08)
[2018-09-20] MEDS ORDERED: chlordiazePOXIDE HCL 10 MG CAPSULE PO PRN
[2018-09-20] MEDS: chlordiazePOXIDE HCL 10 MG CAPSULE PO SCH ×4 (06:49→22:15)
[2018-09-20] MEDS: PRENATAL VITAMINS W/ FOLIC ACID TABLET (FP) PO SCH (10:18)
[2018-09-20] MEDS: FLUoxetine HCL 20 MG CAPSULE (FP) PO SCH (10:18)
[2018-09-20] MEDS: ASPIRIN 81 MG CHEWABLE TABLETS PO SCH (10:18)
[2018-09-20] MEDS: FINASTERIDE 5 MG TABLET (FP) PO SCH (10:19)
[2018-09-20] MEDS: METOPROLOL TARTRATE 50 MG TABLET (FP) PO SCH ×2 (10:19→22:16)
[2018-09-20] MEDS: RANITIDINE HCL 150 MG TABLET (FP) PO SCH ×2 (10:19→22:20)
[2018-09-20] MEDS: CLOPIDOGREL BISULFATE 75 MG TABLET (FP) PO SCH (10:19)
--- NOTE | 2018-09-20 15:58 | PN ---
S CIWA - CIWA Score Nausea/Vomitin-Mild Nausea/No Vomiting Muscle Tremors: 2 Anxiety: 2 Agitation: 2 Paroxysmal Sweats: 1-Minimal Palms Moist Orientation: 0-Oriented Tacttile Disturbances: 0-None Auditory Disturbances: 0-None Visual Disturbances: 0-None Headache: 0-None Present CIWA-Ar Total Score: 8 BHS Progress Note (SOAP) Subjective: tremor restlessness poor concentration Objective: 09/20/18 15:59 Vital Signs Temperature 97.4 F L 09/20/18 13:24 Pulse Rate 59 L 09/20/18 13:24 Respiratory Rate 19 09/20/18 13:24 Blood Pressure 156/78 09/20/18 13:24 O2 Sat by Pulse Oximetry (%) Laboratory Last Values WBC 6.4 K/mm3 (4.0-10.0) 09/17/18 10:15 RBC 3.48 M/mm3 (4.00-5.60) L 09/17/18 10:15 Hgb 11.5 GM/dL (11.7-16.9) L 09/17/18 10:15 Hct 33.6 % (35.4-49) L 09/17/18 10:15 MCV 96.5 fl (80-96) H 09/17/18 10:15 MCH 33.0 pg (25.7-33.7) 09/17/18 10:15 MCHC 34.2 g/dl (32.0-35.9) 09/17/18 10:15 RDW 13.6 % (11.9-15.9) 09/17/18 10:15 Plt Count 242 K/MM3 (134-434) D 09/17/18 10:15 MPV 7.6 fl (7.5-11.1) D 09/17/18 10:15 Sodium 136 mmol/L (136-145) 09/17/18 10:15 Potassium 4.5 mmol/L (3.5-5.1) 09/17/18 10:15 Chloride 102 mmol/L (98-107) 09/17/18 10:15 Carbon Dioxide 25 mmol/L (21-32) 09/17/18 10:15 Anion Gap 10 MMOL/L (8-16) 09/17/18 10:15 BUN 15.8 mg/dL (7-18) 09/17/18 10:15 Creatinine 1.2 mg/dL (0.55-1.3) 09/17/18 10:15 Est GFR (CKD-EPI)AfAm 69.11 09/17/18 10:15 Est GFR (CKD-EPI)NonAf 59.63 09/17/18 10:15 Random Glucose 73 mg/dL (74-106) L 09/17/18 10:15 Calcium 8.5 mg/dL (8.5-10.1) 09/17/18 10:15 Total Bilirubin 0.4 mg/dL (0.2-1) 09/17/18 10:15 AST 60 U/L (15-37) H 09/17/18 10:15 ALT 29 U/L (13-61) 09/17/18 10:15 Alkaline Phosphatase 96 U/L (45-117) 09/17/18 10:15 Total Protein 7.2 g/dl (6.4-8.2) 09/17/18 10:15 Albumin 3.9 g/dl (3.4-5.0) 09/17/18 10:15 Urine Color Yellow 09/17/18 11:00 Urine Appearance Clear 09/17/18 11:00 Urine pH 5.0 (5.0-8.0) 09/17/18 11:00 Ur Specific [place] 1.006 (1.010-1.035) L 09/17/18 11:00 Urine Protein Negative (NEGATIVE) 09/17/18 11:00 Urine Glucose (UA) Negative (NEGATIVE) 09/17/18 11:00 Urine Ketones Negative (NEGATIVE) 09/17/18 11:00 Urine Blood Negative (NEGATIVE) 09/17/18 11:00 Urine Nitrite Negative (NEGATIVE) 09/17/18 11:00 Urine Bilirubin Negative (NEGATIVE) 09/17/18 11:00 Urine Urobilinogen 0.2 mg/dL (0.2-1.0) 09/17/18 11:00 Ur Leukocyte Esterase Negative (NEGATIVE) 09/17/18 11:00 RPR Titer Nonreactive (NONREACTIVE) 09/17/18 10:15 lab noted long history of hypertension begin amlodipin 10 mg po daily and lisinopril 10 mg po bid 09/20/18 16:03 Assessment: 09/20/18 16:04 alcohol withdrawal sx Plan: continue alcohol detox
[2018-09-20] MEDS: amLODIPine BESYLATE 10 MG TABLET (FP) PO SCH (17:38)
[2018-09-20] MEDS: THIAMINE HCL 100 MG TABLET (FP) PO SCH (22:15)
[2018-09-20] MEDS: ATORVASTATIN CA 10 MG TABLET (FP) PO SCH (22:15)
[2018-09-20] MEDS: LISINOPRIL 10 MG TABLET (FP) PO SCH (22:16)
[2018-09-20] MEDS: MIRTAZAPINE 15 MG TABLET (FP) PO SCH (22:16)
[2018-09-21] MEDS: chlordiazePOXIDE HCL 10 MG CAPSULE PO SCH ×2 (06:40→17:55)
[2018-09-21] MEDS: PRENATAL VITAMINS W/ FOLIC ACID TABLET (FP) PO SCH (10:07)
[2018-09-21] MEDS: METOPROLOL TARTRATE 50 MG TABLET (FP) PO SCH ×2 (10:07→22:20)
[2018-09-21] MEDS: LISINOPRIL 10 MG TABLET (FP) PO SCH ×2 (10:08→22:20)
[2018-09-21] MEDS: FLUoxetine HCL 20 MG CAPSULE (FP) PO SCH (10:08)
[2018-09-21] MEDS: amLODIPine BESYLATE 10 MG TABLET (FP) PO SCH (10:08)
[2018-09-21] MEDS: RANITIDINE HCL 150 MG TABLET (FP) PO SCH ×2 (10:08→22:20)
[2018-09-21] MEDS: CLOPIDOGREL BISULFATE 75 MG TABLET (FP) PO SCH (10:10)
[2018-09-21] MEDS: ASPIRIN 81 MG CHEWABLE TABLETS PO SCH (10:10)
[2018-09-21] MEDS: FINASTERIDE 5 MG TABLET (FP) PO SCH (10:10)
--- NOTE | 2018-09-21 11:05 | PN ---
[facility] CIWA - CIWA Score Nausea/Vomitin-No Nausea/No Vomiting Muscle Tremors: 2 Anxiety: 1-Mildly Anxious Agitation: 2 Paroxysmal Sweats: No Perspiration Orientation: 0-Oriented Tacttile Disturbances: 0-None Auditory Disturbances: 0-None Visual Disturbances: 0-None Headache: 0-None Present CIWA-Ar Total Score: 5 S Progress Note (SOAP) Subjective: FEELING BETTER TODAY LESS TREMOR MILD RESTLESSNESS DISCUSS AFTERCARE WITH STAFF PATIENT PREFERS TO GO TO [facility] FOR REHAB Objective: 09/21/18 11:06 Vital Signs Temperature 99.0 F 09/21/18 09:19 Pulse Rate 69 09/21/18 09:19 Respiratory Rate 18 09/21/18 09:19 Blood Pressure 134/77 09/21/18 09:19 O2 Sat by Pulse Oximetry (%) Laboratory Last Values WBC 6.4 K/mm3 (4.0-10.0) 09/17/18 10:15 RBC 3.48 M/mm3 (4.00-5.60) L 09/17/18 10:15 Hgb 11.5 GM/dL (11.7-16.9) L 09/17/18 10:15 Hct 33.6 % (35.4-49) L 09/17/18 10:15 MCV 96.5 fl (80-96) H 09/17/18 10:15 MCH 33.0 pg (25.7-33.7) 09/17/18 10:15 MCHC 34.2 g/dl (32.0-35.9) 09/17/18 10:15 RDW 13.6 % (11.9-15.9) 09/17/18 10:15 Plt Count 242 K/MM3 (134-434) D 09/17/18 10:15 MPV 7.6 fl (7.5-11.1) D 09/17/18 10:15 Sodium 136 mmol/L (136-145) 09/17/18 10:15 Potassium 4.5 mmol/L (3.5-5.1) 09/17/18 10:15 Chloride 102 mmol/L (98-107) 09/17/18 10:15 Carbon Dioxide 25 mmol/L (21-32) 09/17/18 10:15 Anion Gap 10 MMOL/L (8-16) 09/17/18 10:15 BUN 15.8 mg/dL (7-18) 09/17/18 10:15 Creatinine 1.2 mg/dL (0.55-1.3) 09/17/18 10:15 Est GFR (CKD-EPI)AfAm 69.11 09/17/18 10:15 Est GFR (CKD-EPI)NonAf 59.63 09/17/18 10:15 Random Glucose 73 mg/dL (74-106) L 09/17/18 10:15 Calcium 8.5 mg/dL (8.5-10.1) 09/17/18 10:15 Total Bilirubin 0.4 mg/dL (0.2-1) 09/17/18 10:15 AST 60 U/L (15-37) H 09/17/18 10:15 ALT 29 U/L (13-61) 09/17/18 10:15 Alkaline Phosphatase 96 U/L (45-117) 09/17/18 10:15 Total Protein 7.2 g/dl (6.4-8.2) 09/17/18 10:15 Albumin 3.9 g/dl (3.4-5.0) 09/17/18 10:15 Urine Color Yellow 09/17/18 11:00 Urine Appearance Clear 09/17/18 11:00 Urine pH 5.0 (5.0-8.0) 09/17/18 11:00 Ur Specific [place] 1.006 (1.010-1.035) L 09/17/18 11:00 Urine Protein Negative (NEGATIVE) 09/17/18 11:00 Urine Glucose (UA) Negative (NEGATIVE) 09/17/18 11:00 Urine Ketones Negative (NEGATIVE) 09/17/18 11:00 Urine Blood Negative (NEGATIVE) 09/17/18 11:00 Urine Nitrite Negative (NEGATIVE) 09/17/18 11:00 Urine Bilirubin Negative (NEGATIVE) 09/17/18 11:00 Urine Urobilinogen 0.2 mg/dL (0.2-1.0) 09/17/18 11:00 Ur Leukocyte Esterase Negative (NEGATIVE) 09/17/18 11:00 RPR Titer Nonreactive (NONREACTIVE) 09/17/18 10:15 LAB NOTED Assessment: 09/21/18 11:07 ALCOHOL WITHDRAWAL SX Plan: CONTINUE ALCOHOL DETOX
[2018-09-21] MEDS: ATORVASTATIN CA 10 MG TABLET (FP) PO SCH (22:20)
[2018-09-21] MEDS: THIAMINE HCL 100 MG TABLET (FP) PO SCH (22:20)
[2018-09-21] MEDS: MIRTAZAPINE 15 MG TABLET (FP) PO SCH (22:20)
[2018-09-22] MEDS ORDERED: chlordiazePOXIDE HCL 10 MG CAPSULE PO ONE (05:00)
[2018-09-22 06:07] VITALS: BP 130/62; PULSE 60; TEMP 98.3
== END 2018-09-22 08:52 | disposition home or self-care (01) | DRG 775 ==
LOC: YASAS 08:47 → Y3N 10:57
PROVIDERS: ADMIT Surgery; ATTEND Surgery
PROC: HZ2ZZZZ Detoxification Services for Substance Abuse Treatment (ICD-10-PCS; principal; 2018-09-17)
DX: F10.230 Alcohol dependence with withdrawal, uncomplicated (principal); F10.282 Alcohol dependence with alcohol-induced sleep disorder; F32.9 Major depressive disorder, single episode, unspecified; I12.9 Hypertensive chronic kidney disease with stage 1 through stage 4 chronic kidney disease, or unspecified chronic kidney disease; N18.9 Chronic kidney disease, unspecified; I83.93 Asymptomatic varicose veins of bilateral lower extremities; I38 Endocarditis, valve unspecified; E78.5 Hyperlipidemia, unspecified; N40.0 Benign prostatic hyperplasia without lower urinary tract symptoms; Z85.819 Personal history of malignant neoplasm of unspecified site of lip, oral cavity, and pharynx
CPT/HCPCS: 36415; 80053; 81003; 85027; 86593; 93005; 93010

== ENCOUNTER 2019-10-20 12:45 | Inpatient (IN) | payer OTHER ==
--- NOTE | 2019-10-20 13:54 | BHS.RME ---
Substance Use & Tx History - Substance Use History Alcohol Substance amount: 2 x 6 pack of 16 ounce beer Frequency of use: Daily Substance route: Oral Date of Last Use: 10/20/19 Physical/Psych/Mental Status - Behavior General Behavior: Increased activity (restlessness, agitation) Eye Contact: Normal - Cooperativeness Cooperativeness: Cooperative - Thinking Thought Processes: Tight Thought content: Future oriented - Physical Health Problems Is patient presently having any pain?: No Does patient presently have any injuries (include location): No Does patient currently have a fever: No CIWA Nausea/Vomitin-Mild Nausea/No Vomiting Muscle Tremors: 3 Anxiety: 3 Agitation: 1-Slight > Activity Paroxysmal Sweats: No Perspiration Orientation: 0-Oriented Tacttile Disturbances: 0-None Auditory Disturbances: 0-None Visual Disturbances: 0-None Headache: 0-None Present CIWA-Ar Total Score: 8
--- NOTE | 2019-10-20 15:47 | HP ---
CIWA Score Nausea/Vomitin-Mild Nausea/No Vomiting Muscle Tremors: 3 Anxiety: 3 Agitation: 1-Slight > Activity Paroxysmal Sweats: No Perspiration Orientation: 0-Oriented Tacttile Disturbances: 0-None Auditory Disturbances: 0-None Visual Disturbances: 0-None Headache: 0-None Present CIWA-Ar Total Score: 8 - Admission Criteria OASAS Guidelines: Admission for Medically Managed Detox: Requires at least one of the followin. CIWA greater than 12 2. Seizures within the past 24 hours 3. Delirium tremens within the past 24 hours 4. Hallucinations within the past 24 hours 5. Acute intervention needed for co occurring medical disorder 6. Acute intervention needed for co occurring psychiatric disorder 7. Severe withdrawal that cannot be handled at a lower level of care (continued vomiting, continued diarrhea, abnormal vital signs) requiring intravenous medication and/or fluids 8. Admitting History and Physical - Admission Chief Complaint: Mr. Chow is a 73 yo man who presents to [facility] requesting detox for alcohol use disorder History of Present Illness: Mr. Chow is a 73 yo man who presents to [facility] requesting detox for alcohol use disorder He was last her in September and relapsed to alcohol use a few mos later. PMH: HTN, NC, Throat cancer, prostate hypertrophy PSH: TAVR: aortic valve replacement 2019 Psych: anxiety, depresssion SOC: own place Legal; non Substance Use History Alcohol Substance amount: 2 x 6 pack of 16 ounce beer Frequency of use: Daily Substance route: Oral Date of Last Use: 10/20/19 First use age 15 y. 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 Nicotine: quit 15 years ago History Source: Patient Limitations to Obtaining History: No Limitations - Smoking History Smoking history: Former smoker Have you smoked in the past 12 months: No If you are a former smoker, when did you quit?: 15 yrs ago - Alcohol/Substance Use Hx Alcohol Use: Yes Admission [facility] Allergies/Adverse Reactions: Allergies Allergy/AdvReac Type Severity Reaction Status Date / Time No Known Allergies Allergy Verified 09/17/18 08:56 Exam Limitations: No Limitations - Ebola screening Have you traveled outside of the country in the last 21 days: No Have you been sick,other than usual withdrawal symptoms: No Do you have a fever: No - Review of Systems Constitutional: No Symptoms Reported EENT: reports: Other (hoarse voice post diagnosis of throat cancer many years ago) Respiratory: reports: No Symptoms reported Cardiac: reports: No Symptoms Reported GI: reports: Diarrhea (2 days ago) : reports: Other (takes medication for prostate: Proscar) Musculoskeletal: reports: No Symptoms Reported Integumentary: reports: No Symptoms Reported Neuro: reports: No Symptoms reported Endocrine: reports: No Symptoms Reported Hematology: reports: No Symptoms Reported Psychiatric: reports: Anxious Patient History - Patient Medical History Hx Asthma: No Hx Chronic Obstructive Pulmonary Disease (COPD): No Hx Cancer: Yes (throat cancer - tx with radiation 2003) Hx Cardiac Disorders: No Hx Hypertension: No Hx Hypercholesterolemia: Yes (on meds) Hx Pacemaker: No HX Cerebrovascular Accident: No Hx Seizures: No Hx Diabetes: No Hx Gastrointestinal Disorders: No Hx Liver Disease: Yes (elevated LFTs) Hx Genitourinary Disorders: No Hx Sexually Transmitted Disorders: No Hx Renal Disease (ESRD): No Hx Thyroid Disease: No Hx Human Immunodeficiency Virus (HIV): No Hx Hepatitis C: No Hx Depression: Yes Hx Suicide Attempt: No Hx Schizophrenia: No - Patient Surgical History Past Surgical History: No Hx Neurologic Surgery: No Hx Cataract Extraction: No Hx Cardiac Surgery: No Hx Lung Surgery: No Hx Breast Surgery: No Hx Breast Biopsy: No Hx Abdominal Surgery: No Hx Appendectomy: No Hx Cholecystectomy: No Hx Genitourinary Surgery: No Hx Section: No Hx Orthopedic Surgery: No Anesthesia Reaction: No - PPD History Date: 05/27/18 - Smoking Cessation Smoking history: Former smoker Have you smoked in the past 12 months: No If you are a former smoker, when did you quit?: 15 yrs ago Hx Chewing Tobacco Use: No Initiated information on smoking cessation: No Admission Physical Exam S - Vital Signs Vital Signs: BP 118/59, HR 60, Temp 97.2, RR 16 - Physical General Appearance: Yes: No Apparent Distress, Nourished, Appropriately Dressed HEENTM: Yes: EOMI, Hearing grossly Normal, Other (hoarse quality of voice) Respiratory: Yes: Lungs Clear, Normal Breath Sounds, No Respiratory Distress, No Accessory Muscle Use Neck: Yes: Within Normal Limits, Supple Breast: Yes: Breast Exam Deferred Cardiology: Yes: Regular Rhythm, Regular Rate, S1, S2 Abdominal: Yes: Non Tender, Soft, Protuberent, Other (full lower abdomen to palpation, nontender) Back: Yes: Normal Inspection Musculoskeletal: Yes: Gait Steady Extremities: Yes: Other (varicose veins, bilateral legs, right greater than left) Neurological: Yes: Alert, Normal Response Integumentary: Yes: Normal Color, Dry, Warm - Diagnostic (1) Alcohol dependence with uncomplicated withdrawal Current Visit: Yes Status: Acute (2) BPH (benign prostatic hyperplasia) Current Visit: No Status: Chronic Qualifiers: Lower urinary tract symptom presence: symptoms present Lower urinary tract symptom detail: nocturia Qualified Code(s): N40.1 - Benign prostatic hyperplasia with lower urinary tract symptoms; R35.1 - Nocturia (3) Cardiac valvulopathy Current Visit: No Status: Chronic (4) HLD (hyperlipidemia) Current Visit: No Status: Chronic Qualifiers: Hyperlipidemia type: unspecified Qualified Code(s): E78.5 - Hyperlipidemia, unspecified (5) HTN (hypertension) Current Visit: Yes Status: Chronic Qualifiers: Hypertension type: essential hypertension Qualified Code(s): I10 - Essential (primary) hypertension Cleared for Admission [facility] - Detox or Rehab [facility] Level of Care: Medically Managed Detox Regimen/Protocol: Librium Breathalyzer - Breathalyzer Breathalyzer: 0.143 Urine Drug Screen - Test Device Lot number: [id number] Expiration date: 10/09/21 - Control Is test valid?: Yes - Results Drug screen NEGATIVE: Yes Inpatient Rehab Admission - Rehab Decision to Admit Inpatient rehab admission?: No
[2019-10-20] MEDS ORDERED: METHOCARBAMOL 500 MG TABLET PO PRN (15:57)
[2019-10-20] MEDS ORDERED: MENTHOL/PHENOL 1 EACH UD MM PRN (15:57)
[2019-10-20] MEDS ORDERED: chlordiazePOXIDE HCL 25 MG CAPSULE PO PRN (15:57)
[2019-10-20] MEDS ORDERED: ACETAMINOPHEN 325 MG TABLET (FP) PO PRN ×2 (15:57)
[2019-10-20] MEDS ORDERED: MAGNESIUM HYDROX 2400MG/30ML ORAL SUSPENSION 30 ML CUP PO PRN (15:57)
[2019-10-20] MEDS ORDERED: MAGNESIUM CITRATE 300 ML BOTTLE PO PRN (15:57)
[2019-10-20] MEDS ORDERED: IBUPROFEN 400 MG TABLET (FP) PO PRN (15:57)
[2019-10-20] MEDS ORDERED: ONDANSETRON *ODT* 4 MG TABLET SL PRN (15:57)
[2019-10-20] MEDS: chlordiazePOXIDE HCL 25 MG CAPSULE PO SCH ×2 (17:46→22:41)
[2019-10-20] MEDS: hydrOXYzine PAMOATE 25 MG CAPSULE (FP) PO SCH ×2 (17:46→22:40)
[2019-10-20] MEDS ORDERED: PATIENT'S OWN MEDICATION (NON-FORMULARY) (Simvastatin 40 MG) PO SCH (22:00)
[2019-10-20] MEDS: MIRTAZAPINE 15 MG TABLET (FP) PO SCH (22:40)
[2019-10-20] MEDS: METOPROLOL TARTRATE 50 MG TABLET (FP) PO SCH (22:40)
[2019-10-20] MEDS: LISINOPRIL 10 MG TABLET (FP) PO SCH (22:41)
[2019-10-20] MEDS: THIAMINE HCL 100 MG TABLET (FP) PO SCH (22:41)
[2019-10-20] MEDS: ATORVASTATIN CA 10 MG TABLET (FP) PO SCH (22:41)
[2019-10-20] MEDS: MELATONIN 5 MG TABLETS PO SCH (22:41)
[2019-10-21] MEDS: hydrOXYzine PAMOATE 25 MG CAPSULE (FP) PO SCH ×5 (05:53→22:47)
[2019-10-21] MEDS: chlordiazePOXIDE HCL 25 MG CAPSULE PO SCH ×4 (05:53→22:48)
[2019-10-21] MEDS ORDERED: FLUoxetine HCL 20 MG CAPSULE PO SCH (10:00)
[2019-10-21] MEDS: METOPROLOL TARTRATE 50 MG TABLET (FP) PO SCH ×2 (10:16→22:48)
[2019-10-21] MEDS: ASPIRIN 81 MG CHEWABLE TABLETS PO SCH (10:16)
[2019-10-21] MEDS: CLOPIDOGREL BISULFATE 75 MG TABLET (FP) PO SCH (10:16)
[2019-10-21] MEDS: TAMSULOSIN HCL 0.4 MG CAP PO SCH (10:17)
[2019-10-21] MEDS: PRENATAL VITAMINS W/ FOLIC ACID TABLET (FP) PO SCH (10:17)
[2019-10-21] MEDS: LISINOPRIL 10 MG TABLET (FP) PO SCH ×2 (10:17→22:48)
[2019-10-21] MEDS: amLODIPine BESYLATE 10 MG TABLET (FP) PO SCH (10:17)
[2019-10-21] MEDS: FINASTERIDE 5 MG TABLET (FP) PO SCH (11:00)
--- NOTE | 2019-10-21 11:00 | PN ---
S CIWA - CIWA Score Nausea/Vomitin-No Nausea/No Vomiting Muscle Tremors: 2 Anxiety: 3 Agitation: 0-Normal Activity Paroxysmal Sweats: 3 Orientation: 0-Oriented Tacttile Disturbances: 0-None Auditory Disturbances: 0-None Visual Disturbances: 0-None Headache: 0-None Present CIWA-Ar Total Score: 8 BHS Progress Note (SOAP) Subjective: c/o anxiety, diarrhea, sweats, and headache. Objective: 10/21/19 10:59 Vital Signs 10/21/19 10/21/19 05:42 08:25 Temperature 97.1 F L 98.6 F Pulse Rate 65 57 L Respiratory 18 18 Rate Blood Pressure 197/85 H 89/57 L O2 Sat by Pulse 96 Oximetry (%) Labs pending. Assessment: 10/21/19 11:00 AOX3 and in no acute respiratory distress. Full ROM, ambulating in the unit. Withdrawal symptoms. Plan: continue detox.
[2019-10-21] MEDS: BISMUTH SUBSALICYLATE 524 MG/30 ML UD PO PRN (11:06)
[2019-10-21 12:00] LABS: HEMATOCRIT 34.3 % (35.4-49); HEMOGLOBIN 11.5 GM/dL (11.7-16.9); MCH 34.3 pg (25.7-33.7); MCHC 33.4 g/dl (32.0-35.9); MEAN CELL VOLUME 102.8 fl (80-96); MEAN PLT VOLUME 8.9 fl (7.5-11.1); PLATELET COUNT 164 K/MM3 (134-434); RBC 3.34 M/mm3 (4.00-5.60); RDW 12.9 % (11.9-15.9); WHITE BLOOD COUNT 7.2 K/mm3 (4.0-10.0)
[2019-10-21 12:06] LABS: ALBUMIN 3.7 g/dl (3.4-5.0); BILIRUBIN,TOTAL 1.2 mg/dL (0.2-1); CALCIUM 9.2 mg/dL (8.5-10.1); CREATININE 1.2 mg/dL (0.55-1.3); TOT PROT 6.8 g/dl (6.4-8.2)
--- NOTE | 2019-10-21 13:53 | CONSULT ---
[facility] Psychiatric Consult - Data Date of interview: 10/21/19 Admission source: [facility] Identifying data: Revisit to [facility] and admission to [address] [place] [address] for this 73 y/o [place]-born male self-referred for detoxification treatment. KEYUR issue : alcohol. 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 Substance Abuse History: Discussed with the patient. KEYUR profile as follows : Alcohol. Substance amount: 2 x 6 pack of 16 ounce beer. Frequency of use: Daily. Substance route: Oral. Date of Last Use: 10/20/19. First use age 15 y. No seizures. Blackouts; unclear last one. 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 Nicotine: quit 15 years ago. History Source: Patient. Limitations to Obtaining History: No Limitations. - Smoking History. Smoking history: Former smoker. Have you smoked in the past 12 months: No. If you are a former smoker, when did you quit?: 15 yrs ago. - Alcohol/Substance Use. Hx Alcohol Use: Yes Medical History: Medical history is remarkable for hypertension, dyslipidemia, antecedent of aortic valve replacement (2019), stent placement (a year + half ago at [facility]), benign prostatic hyperplasia (BPH), history of renal insufficiency, diagnosis of throat cancer ([id number]) and radiation treatment. No known allergies. Psychiatric History: Patient denies history of psychiatric hospitalizations. He has been diagnosed with MDD 3-5 years ago. Mr Chow is currently seeing a psychiatrist for OPD care at a [facility] at [address] in the [place] (prescribed prozac 40 mg/daily + remeron 15 mg/hs). Patient is a good, clear and reliable historian. Denies history of suicide attempts. Physical/Sexual Abuse/Trauma History: Patient denies. Additional Comment: Negative toxicology. Mental Status Exam - Mental Status Exam Alert and Oriented to: Time, Place, Person Cognitive Function: Good Patient Appearance: Well Groomed Mood: Hopeful, Euthymic Affect: Appropriate, Normal Range Patient Behavior: Appropriate, Cooperative Speech Pattern: Clear, Appropriate Voice Loudness: Normal Thought Process: Intact, Goal Oriented Thought Disorder: Not Present Hallucinations: Denies Suicidal Ideation: Denies Homicidal Ideation: Denies Insight/Judgement: Fair Sleep: Fair Appetite: Good Gait/Station: Normal Psychiatric Findings - Problem List ([place] 1, 2,3) (1) Alcohol dependence with uncomplicated withdrawal Current Visit: Yes Status: Acute (2) MDD (major depressive disorder) Current Visit: Yes Status: Chronic (3) Insomnia Current Visit: Yes Status: Chronic - Initial Treatment Plan Initial Treatment Plan: Psychoeducation and support. Sleep hygiene. Detoxification in progress. Prozac + mirtazapine are already been ordered from [facility] provider. Agrees with continuation of prozac 20 mg po daily + remeron 15 mg po hs. Side effects/benefits of both drugs are discussed with the patient. Mr Chow has consented (verbally) to this urss of care. Observation.
[2019-10-21] MEDS: THIAMINE HCL 100 MG TABLET (FP) PO SCH (22:45)
[2019-10-21] MEDS: MIRTAZAPINE 15 MG TABLET (FP) PO SCH (22:47)
[2019-10-21] MEDS: MELATONIN 5 MG TABLETS PO SCH (22:48)
[2019-10-21] MEDS: ATORVASTATIN CA 10 MG TABLET (FP) PO SCH (22:48)
[2019-10-22] MEDS: hydrOXYzine PAMOATE 25 MG CAPSULE (FP) PO SCH ×5 (05:48→22:06)
[2019-10-22] MEDS: chlordiazePOXIDE HCL 25 MG CAPSULE PO SCH ×4 (05:48→22:07)
[2019-10-22] MEDS: FINASTERIDE 5 MG TABLET (FP) PO SCH (10:21)
[2019-10-22] MEDS: METOPROLOL TARTRATE 50 MG TABLET (FP) PO SCH ×2 (10:22→22:06)
[2019-10-22] MEDS: CLOPIDOGREL BISULFATE 75 MG TABLET (FP) PO SCH (10:22)
[2019-10-22] MEDS: TAMSULOSIN HCL 0.4 MG CAP PO SCH (10:22)
[2019-10-22] MEDS: PRENATAL VITAMINS W/ FOLIC ACID TABLET (FP) PO SCH (10:22)
[2019-10-22] MEDS: amLODIPine BESYLATE 10 MG TABLET (FP) PO SCH (10:22)
[2019-10-22] MEDS: ASPIRIN 81 MG CHEWABLE TABLETS PO SCH (10:22)
[2019-10-22] MEDS: LISINOPRIL 10 MG TABLET (FP) PO SCH ×2 (10:22→22:06)
--- NOTE | 2019-10-22 10:42 | PN ---
S CIWA - CIWA Score Nausea/Vomitin-No Nausea/No Vomiting Muscle Tremors: 4-Moderate,w/Arms Extend Anxiety: 4-Mod. Anxious/Guarded Agitation: 2 Paroxysmal Sweats: No Perspiration Orientation: 0-Oriented Tacttile Disturbances: 0-None Auditory Disturbances: 0-None Visual Disturbances: 1-Very Mild Sensitivity Headache: 1-Very Mild CIWA-Ar Total Score: 12 BHS Progress Note (SOAP) Subjective: 73 years old male admitted on 10/20/19 for alcohol withdrawal sx management treating with librium detox regiment seen by psychiatrist ronny gordon Vital Signs - 24 hr 10/21/19 10/21/19 10/21/19 12:14 17:04 20:44 Temperature 97.1 F L 97.3 F L 97.5 F L Pulse Rate 62 59 L 69 Respiratory 16 18 18 Rate Blood Pressure 101/67 112/66 98/60 O2 Sat by Pulse 97 96 Oximetry (%) 10/22/19 10/22/19 10/22/19 07:05 07:47 08:23 Temperature 97.3 F L 96.9 F L Pulse Rate 59 L 52 L 54 L Respiratory 18 18 Rate Blood Pressure 186/84 H 139/72 139/71 O2 Sat by Pulse 99 Oximetry (%) bp fluctuation noted set parameter for metoprolol lisinopril and amlodipine Objective: 10/22/19 10:49 Vital Signs - 24 hr 10/21/19 10/21/19 10/21/19 12:14 17:04 20:44 Temperature 97.1 F L 97.3 F L 97.5 F L Pulse Rate 62 59 L 69 Respiratory 16 18 18 Rate Blood Pressure 101/67 112/66 98/60 O2 Sat by Pulse 97 96 Oximetry (%) 10/22/19 10/22/19 10/22/19 07:05 07:47 08:23 Temperature 97.3 F L 96.9 F L Pulse Rate 59 L 52 L 54 L Respiratory 18 18 Rate Blood Pressure 186/84 H 139/72 139/71 O2 Sat by Pulse 99 Oximetry (%) 10/22/19 10:50 Laboratory Tests 10/20/19 10/21/19 10/21/19 16:45 07:50 07:50 WBC 7.2 RBC 3.34 L Hgb 11.5 L Hct 34.3 L MCV 102.8 H MCH 34.3 H MCHC 33.4 RDW 12.9 Plt Count 164 D MPV 8.9 D Sodium Potassium Chloride Carbon Dioxide Anion Gap BUN Creatinine Est GFR (CKD-EPI)AfAm Est GFR (CKD-EPI)NonAf Random Glucose Calcium Total Bilirubin AST ALT Alkaline Phosphatase Total Protein Albumin Syphilis Serology Reactive A* RPR Titer COVID-19 (JESS) Not detected 10/21/19 10/21/19 07:50 07:50 WBC RBC Hgb Hct MCV MCH MCHC RDW Plt Count MPV Sodium 140 Potassium 4.0 Chloride 106 Carbon Dioxide 27 Anion Gap 7 L BUN 16.0 Creatinine 1.2 Est GFR (CKD-EPI)AfAm 68.63 Est GFR (CKD-EPI)NonAf 59.21 Random Glucose 93 Calcium 9.2 Total Bilirubin 1.2 H AST 108 H ALT 64 H Alkaline Phosphatase 143 H Total Protein 6.8 Albumin 3.7 Syphilis Serology RPR Titer Reactive 1:1 H D COVID-19 (JESS) 10/22/19 10:51 syphilis contacted treated Assessment: 10/22/19 10:51 alcohol withdrawal 10/22/19 10:52 syphilis contacted treated Plan: lilibrium regiment
[2019-10-22] MEDS: BISMUTH SUBSALICYLATE 524 MG/30 ML UD PO PRN (17:58)
[2019-10-22] MEDS: MIRTAZAPINE 15 MG TABLET (FP) PO SCH (22:06)
[2019-10-22] MEDS: MELATONIN 5 MG TABLETS PO SCH (22:06)
[2019-10-22] MEDS: ATORVASTATIN CA 10 MG TABLET (FP) PO SCH (22:06)
[2019-10-22] MEDS: THIAMINE HCL 100 MG TABLET (FP) PO SCH (22:06)
[2019-10-23] MEDS ORDERED: chlordiazePOXIDE HCL 10 MG CAPSULE PO PRN
[2019-10-23] MEDS: chlordiazePOXIDE HCL 10 MG CAPSULE PO SCH ×4 (05:44→22:12)
[2019-10-23] MEDS: hydrOXYzine PAMOATE 25 MG CAPSULE (FP) PO SCH ×5 (05:44→22:12)
[2019-10-23] MEDS: BISMUTH SUBSALICYLATE 524 MG/30 ML UD PO PRN ×2 (06:19→10:19)
[2019-10-23] MEDS: FINASTERIDE 5 MG TABLET (FP) PO SCH (10:12)
[2019-10-23] MEDS: ASPIRIN 81 MG CHEWABLE TABLETS PO SCH (10:12)
[2019-10-23] MEDS: METOPROLOL TARTRATE 50 MG TABLET (FP) PO SCH ×2 (10:12→22:13)
[2019-10-23] MEDS: amLODIPine BESYLATE 10 MG TABLET (FP) PO SCH (10:12)
[2019-10-23] MEDS: TAMSULOSIN HCL 0.4 MG CAP PO SCH (10:13)
[2019-10-23] MEDS: CLOPIDOGREL BISULFATE 75 MG TABLET (FP) PO SCH (10:13)
[2019-10-23] MEDS: LISINOPRIL 10 MG TABLET (FP) PO SCH ×2 (10:13→22:12)
[2019-10-23] MEDS: PRENATAL VITAMINS W/ FOLIC ACID TABLET (FP) PO SCH (10:17)
--- NOTE | 2019-10-23 10:29 | PN ---
S CIWA - CIWA Score Nausea/Vomitin-No Nausea/No Vomiting Muscle Tremors: 2 Anxiety: 3 Agitation: 2 Paroxysmal Sweats: 1-Minimal Palms Moist Orientation: 0-Oriented Tacttile Disturbances: 0-None Auditory Disturbances: 0-None Visual Disturbances: 0-None Headache: 0-None Present CIWA-Ar Total Score: 8 BHS Progress Note (SOAP) Subjective: 73 years old male was admitted on 10/20/19 for alcohol withdrawal sx management treating with librium detox regiment ate breakfast in room social with peers in day room mr cage states that he has been drinking alcohol "for a long time" recommend hepatitis c and ammonia serum level Objective: 10/23/19 10:32 Vital Signs - 24 hr 10/22/19 10/22/19 10/22/19 12:35 16:21 20:47 Temperature 98.6 F 96.9 F L 97.5 F L Pulse Rate 74 53 L 66 Respiratory 18 18 18 Rate Blood Pressure 135/72 122/66 122/60 O2 Sat by Pulse 100 98 Oximetry (%) 10/23/19 10/23/19 06:42 08:58 Temperature 97.1 F L 98.3 F Pulse Rate 59 L 55 L Respiratory 18 18 Rate Blood Pressure 142/76 127/67 O2 Sat by Pulse 99 Oximetry (%) Laboratory Tests 10/20/19 10/21/19 10/21/19 16:45 07:50 07:50 WBC 7.2 RBC 3.34 L Hgb 11.5 L Hct 34.3 L MCV 102.8 H MCH 34.3 H MCHC 33.4 RDW 12.9 Plt Count 164 D MPV 8.9 D Sodium Potassium Chloride Carbon Dioxide Anion Gap BUN Creatinine Est GFR (CKD-EPI)AfAm Est GFR (CKD-EPI)NonAf Random Glucose Calcium Total Bilirubin AST ALT Alkaline Phosphatase Total Protein Albumin Syphilis Serology Reactive A* RPR Titer COVID-19 (JESS) Not detected 10/21/19 10/21/19 07:50 07:50 WBC RBC Hgb Hct MCV MCH MCHC RDW Plt Count MPV Sodium 140 Potassium 4.0 Chloride 106 Carbon Dioxide 27 Anion Gap 7 L BUN 16.0 Creatinine 1.2 Est GFR (CKD-EPI)AfAm 68.63 Est GFR (CKD-EPI)NonAf 59.21 Random Glucose 93 Calcium 9.2 Total Bilirubin 1.2 H AST 108 H ALT 64 H Alkaline Phosphatase 143 H Total Protein 6.8 Albumin 3.7 Syphilis Serology RPR Titer Reactive 1:1 H D COVID-19 (JESS) 10/23/19 10:33 mr cage can not remember syphilis treatment and is willing to take one penicillin shot today Assessment: 10/23/19 10:40 alcohol withdrawal syphilis Plan: librium regiment penicillin IM x 1
[2019-10-23] MEDS ORDERED: PENICILLIN G BENZATHINE 2,400,000 UNIT/4 ML PFS IM ONE (11:30)
[2019-10-23] MEDS: ATORVASTATIN CA 10 MG TABLET (FP) PO SCH (22:12)
[2019-10-23] MEDS: MELATONIN 5 MG TABLETS PO SCH (22:13)
[2019-10-23] MEDS: MIRTAZAPINE 15 MG TABLET (FP) PO SCH (22:13)
[2019-10-23] MEDS: MAG HYDROX/AL HYDROX/SIMETH 30 ML UNIT-DOSE CUP PO PRN (22:13)
[2019-10-23] MEDS: THIAMINE HCL 100 MG TABLET (FP) PO SCH (22:13)
[2019-10-24] MEDS: hydrOXYzine PAMOATE 25 MG CAPSULE (FP) PO SCH ×5 (05:31→22:02)
[2019-10-24] MEDS: chlordiazePOXIDE HCL 10 MG CAPSULE PO SCH ×2 (05:31→17:29)
[2019-10-24] MEDS: PRENATAL VITAMINS W/ FOLIC ACID TABLET (FP) PO SCH (10:04)
[2019-10-24] MEDS: TAMSULOSIN HCL 0.4 MG CAP PO SCH (10:05)
[2019-10-24] MEDS: METOPROLOL TARTRATE 50 MG TABLET (FP) PO SCH ×2 (10:05→22:02)
[2019-10-24] MEDS: CLOPIDOGREL BISULFATE 75 MG TABLET (FP) PO SCH (10:05)
[2019-10-24] MEDS: ASPIRIN 81 MG CHEWABLE TABLETS PO SCH (10:05)
[2019-10-24] MEDS: LISINOPRIL 10 MG TABLET (FP) PO SCH ×2 (10:05→22:02)
[2019-10-24] MEDS: amLODIPine BESYLATE 10 MG TABLET (FP) PO SCH (10:05)
[2019-10-24] MEDS: FINASTERIDE 5 MG TABLET (FP) PO SCH (10:06)
--- NOTE | 2019-10-24 11:19 | PN ---
S CIWA - CIWA Score Nausea/Vomitin-No Nausea/No Vomiting Muscle Tremors: 1-None Visible, but [place] Anxiety: 1-Mildly Anxious Agitation: 1-Slight > Activity Paroxysmal Sweats: 1-Minimal Palms Moist Orientation: 0-Oriented Tacttile Disturbances: 0-None Auditory Disturbances: 0-None Visual Disturbances: 2-Mild Sensitivity Headache: 0-None Present CIWA-Ar Total Score: 6 BHS Progress Note (SOAP) Subjective: 73 years old male was admitted on 10/20/19 for alcohol withdrawal sx management treating with librium detox regiment feeling better today less tremor mild restlessness discussing aftercare with staff mr cage prefers to go to [facility] "four blocks away" Objective: 10/24/19 11:18 Vital Signs - 24 hr 10/23/19 10/23/19 10/23/19 12:59 16:30 20:50 Temperature 97.7 F 96.9 F L 97.5 F L Pulse Rate 58 L 58 L 62 Respiratory 20 18 18 Rate Blood Pressure 103/69 119/68 154/77 O2 Sat by Pulse 100 95 Oximetry (%) 10/24/19 10/24/19 06:12 08:46 Temperature 97.0 F L 97.3 F L Pulse Rate 56 L 55 L Respiratory 18 20 Rate Blood Pressure 129/77 101/67 O2 Sat by Pulse 99 Oximetry (%) Laboratory Tests 10/20/19 10/21/19 10/21/19 16:45 07:50 07:50 WBC 7.2 RBC 3.34 L Hgb 11.5 L Hct 34.3 L MCV 102.8 H MCH 34.3 H MCHC 33.4 RDW 12.9 Plt Count 164 D MPV 8.9 D Sodium Potassium Chloride Carbon Dioxide Anion Gap BUN Creatinine Est GFR (CKD-EPI)AfAm Est GFR (CKD-EPI)NonAf Random Glucose Calcium Total Bilirubin AST ALT Alkaline Phosphatase Total Protein Albumin Syphilis Serology Reactive A* RPR Titer COVID-19 (JESS) Not detected 10/21/19 10/21/19 07:50 07:50 WBC RBC Hgb Hct MCV MCH MCHC RDW Plt Count MPV Sodium 140 Potassium 4.0 Chloride 106 Carbon Dioxide 27 Anion Gap 7 L BUN 16.0 Creatinine 1.2 Est GFR (CKD-EPI)AfAm 68.63 Est GFR (CKD-EPI)NonAf 59.21 Random Glucose 93 Calcium 9.2 Total Bilirubin 1.2 H AST 108 H ALT 64 H Alkaline Phosphatase 143 H Total Protein 6.8 Albumin 3.7 Syphilis Serology RPR Titer Reactive 1:1 H D COVID-19 (JESS) lab noted one penicillin IM booster given Assessment: 10/24/19 11:18 alcohol withdrawal Plan: librium regiment
[2019-10-24] MEDS: THIAMINE HCL 100 MG TABLET (FP) PO SCH (22:02)
[2019-10-24] MEDS: ATORVASTATIN CA 10 MG TABLET (FP) PO SCH (22:02)
[2019-10-24] MEDS: MELATONIN 5 MG TABLETS PO SCH (22:02)
[2019-10-24] MEDS: MIRTAZAPINE 15 MG TABLET (FP) PO SCH (22:02)
[2019-10-24] MEDS: MAG HYDROX/AL HYDROX/SIMETH 30 ML UNIT-DOSE CUP PO PRN (22:04)
[2019-10-25] MEDS ORDERED: chlordiazePOXIDE HCL 10 MG CAPSULE PO ONE (05:00)
[2019-10-25] MEDS: hydrOXYzine PAMOATE 25 MG CAPSULE (FP) PO SCH ×2 (05:40→09:28)
--- NOTE | 2019-10-25 08:54 | DS ---
[facility] Detox Discharge Summary Admission Date: 10/20/19 Discharge Date: 10/25/19 - History Present History: Alcohol Dependence Additional Comments: 73 years old male was admitted on 10/20/19 for alcohol withdrawal sx management treated with librium detox regiment seen by psychiatrist ronny dodd mr cage has completed the librium regiment and is tolerated well General Appearance: Yes: No Apparent Distress, Nourished, Appropriately Dressed HEENTM: Yes: EOMI, Hearing grossly Normal, Other (hoarse quality of voice) Respiratory: Yes: Lungs Clear, Normal Breath Sounds, No Respiratory Distress, No Accessory Muscle Use Neck: Yes: Within Normal Limits, Supple Breast: Yes: Breast Exam Deferred Cardiology: Yes: Regular Rhythm, Regular Rate, S1, S2 Abdominal: Yes: Non Tender, Soft, Protuberent, Other (full lower abdomen to palpation, nontender) Back: Yes: Normal Inspection Musculoskeletal: Yes: Gait Steady Extremities: Yes: Other (varicose veins, bilateral legs, right greater than left) Neurological: Yes: Alert, Normal Response Integumentary: Yes: Normal Color, Dry, Warm Pertinent Past History: time for discharge 35 minutes - Physical Exam Results Vital Signs: Vital Signs Temperature 99.0 F 10/25/19 05:23 Pulse Rate 57 L 10/25/19 05:23 Respiratory Rate 20 10/25/19 05:23 Blood Pressure 135/72 10/25/19 05:23 O2 Sat by Pulse Oximetry (%) 99 10/25/19 05:23 Pertinent Admission Physical Exam Findings: alcohol withdrawal Laboratory Tests 10/20/19 10/21/19 10/21/19 16:45 07:50 07:50 WBC 7.2 RBC 3.34 L Hgb 11.5 L Hct 34.3 L MCV 102.8 H MCH 34.3 H MCHC 33.4 RDW 12.9 Plt Count 164 D MPV 8.9 D Sodium Potassium Chloride Carbon Dioxide Anion Gap BUN Creatinine Est GFR (CKD-EPI)AfAm Est GFR (CKD-EPI)NonAf Random Glucose Calcium Total Bilirubin AST ALT Alkaline Phosphatase Ammonia Total Protein Albumin Syphilis Serology Reactive A* RPR Titer COVID-19 (JESS) Not detected Hep C Ab Diagnostic 10/21/19 10/21/19 10/24/19 07:50 07:50 08:30 WBC RBC Hgb Hct MCV MCH MCHC RDW Plt Count MPV Sodium 140 Potassium 4.0 Chloride 106 Carbon Dioxide 27 Anion Gap 7 L BUN 16.0 Creatinine 1.2 Est GFR (CKD-EPI)AfAm 68.63 Est GFR (CKD-EPI)NonAf 59.21 Random Glucose 93 Calcium 9.2 Total Bilirubin 1.2 H AST 108 H ALT 64 H Alkaline Phosphatase 143 H Ammonia 84.30 H Total Protein 6.8 Albumin 3.7 Syphilis Serology RPR Titer Reactive 1:1 H D COVID-19 (JESS) Hep C Ab Diagnostic 10/24/19 08:30 WBC RBC Hgb Hct MCV MCH MCHC RDW Plt Count MPV Sodium Potassium Chloride Carbon Dioxide Anion Gap BUN Creatinine Est GFR (CKD-EPI)AfAm Est GFR (CKD-EPI)NonAf Random Glucose Calcium Total Bilirubin AST ALT Alkaline Phosphatase Ammonia Total Protein Albumin Syphilis Serology RPR Titer COVID-19 (JESS) Hep C Ab Diagnostic 0.1 syphilis contacted treated booster penicillin Im x 1 on 10/23/19 - Treatment Hospital Course: Detox Protocol Followed, Detoxed Safely, Responded well, Discharged Condition Good, Rehab Referral Accepted Patient has Accepted a Rehab Referral to: [facility] out patient treatment program - Medication Discharge Medications: Ambulatory Orders Alfuzosin HCl [Alfuzosin HCl ER] 10 mg PO HS 05/25/18 Aspirin [ASA -] 81 mg PO DAILY 05/25/18 Cyanocobalamin [Vitamin B12 -] 500 mcg PO DAILY 05/25/18 Fluoxetine HCl [Prozac -] 20 mg PO DAILY 05/25/18 Mirtazapine [Remeron -] 15 mg PO HS 05/25/18 Multivitamin [Multiple Vitamins] 1 each PO DAILY 05/25/18 Simvastatin [Zocor -] 40 mg PO HS 05/25/18 Amlodipine Besylate [Norvasc -] 10 mg PO DAILY #30 tablet 09/21/18 Atorvastatin Ca [Lipitor] 10 mg PO HS #30 tablet 09/21/18 Clopidogrel Bisulfate [Plavix -] 75 mg PO DAILY #30 tablet 09/21/18 Finasteride [Proscar -] 5 mg PO DAILY #30 tablet 09/21/18 Lisinopril [Prinivil] 10 mg PO BID #60 tablet 09/21/18 Metoprolol Tartrate [Lopressor -] 50 mg PO BID #60 tablet 09/21/18 - Diagnosis (1) Alcohol dependence with uncomplicated withdrawal Status: Acute (2) Syphilis contact, treated Status: Chronic (3) BPH (benign prostatic hyperplasia) Status: Chronic Qualifiers: Lower urinary tract symptom presence: symptoms present Lower urinary tract symptom detail: nocturia Qualified Code(s): N40.1 - Benign prostatic hyperplasia with lower urinary tract symptoms; R35.1 - Nocturia (4) HLD (hyperlipidemia) Status: Chronic Qualifiers: Hyperlipidemia type: unspecified Qualified Code(s): E78.5 - Hyperlipidemia, unspecified (5) HTN (hypertension) Status: Chronic Qualifiers: Hypertension type: essential hypertension Qualified Code(s): I10 - Essential (primary) hypertension (6) Renal insufficiency Status: Chronic - AMA Did Patient Leave Against Medical Advice: No CIWA Score - CIWA Score Nausea/Vomitin-No Nausea/No Vomiting Muscle Tremors: 1-None Visible, but [place] Anxiety: 0-No Anxiety, at Ease Agitation: 1-Slight > Activity Paroxysmal Sweats: No Perspiration Orientation: 0-Oriented Tacttile Disturbances: 0-None Auditory Disturbances: 0-None Visual Disturbances: 1-Very Mild Sensitivity Headache: 0-None Present CIWA-Ar Total Score: 3
[2019-10-25 09:08] VITALS: BP 101/61; PULSE 72; TEMP 96.9
[2019-10-25] MEDS: CLOPIDOGREL BISULFATE 75 MG TABLET (FP) PO SCH (09:28)
[2019-10-25] MEDS: PRENATAL VITAMINS W/ FOLIC ACID TABLET (FP) PO SCH (09:28)
[2019-10-25] MEDS: METOPROLOL TARTRATE 50 MG TABLET (FP) PO SCH (09:28)
[2019-10-25] MEDS: TAMSULOSIN HCL 0.4 MG CAP PO SCH (09:28)
[2019-10-25] MEDS: FINASTERIDE 5 MG TABLET (FP) PO SCH (09:28)
[2019-10-25] MEDS: amLODIPine BESYLATE 10 MG TABLET (FP) PO SCH (09:28)
[2019-10-25] MEDS: ASPIRIN 81 MG CHEWABLE TABLETS PO SCH (09:28)
[2019-10-25] MEDS: LISINOPRIL 10 MG TABLET (FP) PO SCH (09:28)
== END 2019-10-25 09:30 | disposition home or self-care (01) | DRG 775 ==
LOC: YASAS 12:45 → Y3N 16:37
PROVIDERS: ADMIT Allergy & Immunology; ATTEND Allergy & Immunology
PROC: HZ2ZZZZ Detoxification Services for Substance Abuse Treatment (ICD-10-PCS; principal; 2019-10-20)
DX: F10.230 Alcohol dependence with withdrawal, uncomplicated (principal); F17.211 Nicotine dependence, cigarettes, in remission; F32.9 Major depressive disorder, single episode, unspecified; E78.5 Hyperlipidemia, unspecified; G47.00 Insomnia, unspecified; I25.10 Atherosclerotic heart disease of native coronary artery without angina pectoris; I10 Essential (primary) hypertension; Z95.5 Presence of coronary angioplasty implant and graft; I25.2 Old myocardial infarction; Z95.2 Presence of prosthetic heart valve; N40.0 Benign prostatic hyperplasia without lower urinary tract symptoms; R35.1 Nocturia; Z20.2 Contact with and (suspected) exposure to infections with a predominantly sexual mode of transmission; I83.93 Asymptomatic varicose veins of bilateral lower extremities; Z85.819 Personal history of malignant neoplasm of unspecified site of lip, oral cavity, and pharynx; Z79.02 Long term (current) use of antithrombotics/antiplatelets; Z79.82 Long term (current) use of aspirin
CPT/HCPCS: 36415; 80053; 82140; 85027; 86593; 86780; 86803; U0003

== ENCOUNTER 2020-02-29 10:51 | Inpatient (IN) | payer OTHER ==
[2020-02-29 11:55] VITALS: BMI 27.8
[2020-02-29] MEDS ORDERED: MAG HYDROX/AL HYDROX/SIMETH 30 ML UNIT-DOSE CUP PO PRN (13:11)
[2020-02-29] MEDS ORDERED: MAGNESIUM HYDROX 2400MG/30ML ORAL SUSPENSION 30 ML CUP PO PRN (13:11)
[2020-02-29] MEDS ORDERED: BISMUTH SUBSALICYLATE 524 MG/30 ML UD PO PRN (13:11)
[2020-02-29] MEDS ORDERED: METHOCARBAMOL 500 MG TABLET PO PRN (13:11)
[2020-02-29] MEDS ORDERED: IBUPROFEN 400 MG TABLET (FP) PO PRN (13:11)
[2020-02-29] MEDS ORDERED: MAGNESIUM CITRATE 300 ML BOTTLE PO PRN (13:11)
[2020-02-29] MEDS ORDERED: ONDANSETRON *ODT* 4 MG TABLET SL PRN (13:11)
[2020-02-29] MEDS ORDERED: MENTHOL/PHENOL 1 EACH UD MM PRN (13:11)
[2020-02-29] MEDS ORDERED: chlordiazePOXIDE HCL 25 MG CAPSULE PO PRN (13:11)
[2020-02-29] MEDS ORDERED: ACETAMINOPHEN 325 MG TABLET (FP) PO PRN ×2 (13:11)
[2020-02-29] MEDS: METOPROLOL TARTRATE 25 MG TABLET (FP) PO SCH ×2 (14:23→22:10)
[2020-02-29] MEDS: hydrOXYzine PAMOATE 25 MG CAPSULE (FP) PO SCH ×3 (14:23→22:12)
[2020-02-29] MEDS: ASPIRIN 81 MG CHEWABLE TABLETS PO SCH (14:23)
[2020-02-29] MEDS: CYANOCOBALAMIN (VITAMIN B-12) 100 MCG TABLET PO SCH (14:23)
[2020-02-29 14:59] LABS: HEMATOCRIT 31.5 % (35.4-49); HEMOGLOBIN 10.6 GM/dL (11.7-16.9); MCH 32.4 pg (25.7-33.7); MCHC 33.7 g/dl (32.0-35.9); MEAN CELL VOLUME 96.1 fl (80-96); PLATELET COUNT 237 K/MM3 (134-434); RBC 3.28 M/mm3 (4.00-5.60); RDW 13.6 % (11.9-15.9)
[2020-02-29 15:02] LABS: POTASSIUM 4.2 mmol/L (3.5-5.1)
[2020-02-29 15:03] LABS: CALCIUM 8.5 mg/dL (8.5-10.1)
[2020-02-29 15:04] LABS: ALBUMIN 3.8 g/dl (3.4-5.0); BLOOD UREA NITROGEN 17.7 mg/dL (7-18)
[2020-02-29 15:07] LABS: CREATININE 1.2 mg/dL (0.55-1.3)
[2020-02-29 15:09] LABS: TOT PROT 6.8 g/dl (6.4-8.2)
[2020-02-29 15:12] LABS: BILIRUBIN,TOTAL 0.6 mg/dL (0.2-1)
[2020-02-29] MEDS ORDERED: chlordiazePOXIDE HCL 25 MG CAPSULE PO SCH (17:00)
[2020-02-29] MEDS: chlordiazePOXIDE HCL 25 MG CAPSULE PO SCH ×2 (17:03→22:10)
[2020-02-29] MEDS ORDERED: MELATONIN 5 MG TABLETS PO SCH (22:00)
[2020-02-29] MEDS: MIRTAZAPINE 15 MG TABLET (FP) PO SCH (22:10)
[2020-02-29] MEDS: SIMVASTATIN 40 MG PO SCH (22:10)
[2020-02-29] MEDS: THIAMINE HCL 100 MG TABLET (FP) PO SCH (22:10)
[2020-02-29] MEDS: PATIENT'S OWN MEDICATION (NON-FORMULARY) (Alfuzosin Hcl [Alfuzosin Hcl Er] 10 MG Tab.Er.24 PO SCH (22:11)
[2020-03-01] MEDS: chlordiazePOXIDE HCL 25 MG CAPSULE PO SCH ×4 (05:59→22:02)
[2020-03-01] MEDS: hydrOXYzine PAMOATE 25 MG CAPSULE (FP) PO SCH ×5 (05:59→22:02)
[2020-03-01] MEDS: PRENATAL VITAMINS W/ FOLIC ACID TABLET (FP) PO SCH (10:10)
[2020-03-01] MEDS: ASPIRIN 81 MG CHEWABLE TABLETS PO SCH (10:11)
[2020-03-01] MEDS: METOPROLOL TARTRATE 25 MG TABLET (FP) PO SCH ×2 (10:11→22:02)
[2020-03-01] MEDS: FLUoxetine HCL 20 MG CAPSULE PO SCH (10:11)
[2020-03-01] MEDS: CYANOCOBALAMIN (VITAMIN B-12) 100 MCG TABLET PO SCH (10:12)
[2020-03-01] MEDS: PATIENT'S OWN MEDICATION (NON-FORMULARY) (Alfuzosin Hcl [Alfuzosin Hcl Er] 10 MG Tab.Er.24 PO SCH (22:01)
[2020-03-01] MEDS: THIAMINE HCL 100 MG TABLET (FP) PO SCH (22:01)
[2020-03-01] MEDS: MIRTAZAPINE 15 MG TABLET (FP) PO SCH (22:02)
[2020-03-01] MEDS: SIMVASTATIN 40 MG PO SCH (22:02)
[2020-03-01] MEDS: MELATONIN 5 MG TABLETS PO SCH (22:02)
[2020-03-02] MEDS: chlordiazePOXIDE HCL 10 MG CAPSULE PO SCH ×4 (05:36→22:01)
[2020-03-02] MEDS: hydrOXYzine PAMOATE 25 MG CAPSULE (FP) PO SCH ×5 (05:36→22:01)
[2020-03-02] MEDS: PRENATAL VITAMINS W/ FOLIC ACID TABLET (FP) PO SCH (10:01)
[2020-03-02] MEDS: METOPROLOL TARTRATE 25 MG TABLET (FP) PO SCH ×2 (10:02→22:01)
[2020-03-02] MEDS: FLUoxetine HCL 20 MG CAPSULE PO SCH (10:02)
[2020-03-02] MEDS: ASPIRIN 81 MG CHEWABLE TABLETS PO SCH (10:02)
[2020-03-02 12:11] LABS: POTASSIUM 4.1 mmol/L (3.5-5.1)
[2020-03-02 12:13] LABS: BLOOD UREA NITROGEN 24.2 mg/dL (7-18); CALCIUM 8.7 mg/dL (8.5-10.1)
[2020-03-02 12:17] LABS: CREATININE 1.3 mg/dL (0.55-1.3)
[2020-03-02] MEDS: CYANOCOBALAMIN (VITAMIN B-12) 100 MCG TABLET PO SCH (12:19)
[2020-03-02 12:20] LABS: BASO % 0.7 % (0-2.0); EOS % 6.6 % (0-4.5); HEMATOCRIT 31.1 % (35.4-49); HEMOGLOBIN 10.3 GM/dL (11.7-16.9); LYMPH % 11.3 % (8-40); MCH 32.6 pg (25.7-33.7); MCHC 33.2 g/dl (32.0-35.9); MEAN CELL VOLUME 98.1 fl (80-96); MEAN PLT VOLUME 8.7 fl (7.5-11.1); NEUT % 70.4 % (42.8-82.8); PLATELET COUNT 202 K/MM3 (134-434); RBC 3.17 M/mm3 (4.00-5.60); RDW 13.4 % (11.9-15.9); WHITE BLOOD COUNT 6.1 K/mm3 (4.0-10.0)
[2020-03-02] MEDS: MIRTAZAPINE 15 MG TABLET (FP) PO SCH (22:01)
[2020-03-02] MEDS: THIAMINE HCL 100 MG TABLET (FP) PO SCH (22:01)
[2020-03-02] MEDS: MELATONIN 5 MG TABLETS PO SCH (22:02)
[2020-03-02] MEDS: PATIENT'S OWN MEDICATION (NON-FORMULARY) (Alfuzosin Hcl [Alfuzosin Hcl Er] 10 MG Tab.Er.24 PO SCH (22:03)
[2020-03-02] MEDS: SIMVASTATIN 40 MG PO SCH (22:03)
[2020-03-03] MEDS ORDERED: chlordiazePOXIDE HCL 10 MG CAPSULE PO PRN
[2020-03-03] MEDS: chlordiazePOXIDE HCL 10 MG CAPSULE PO SCH ×2 (06:06→17:09)
[2020-03-03] MEDS: hydrOXYzine PAMOATE 25 MG CAPSULE (FP) PO SCH ×5 (06:06→22:05)
[2020-03-03] MEDS: FLUoxetine HCL 20 MG CAPSULE PO SCH (10:02)
[2020-03-03] MEDS: METOPROLOL TARTRATE 25 MG TABLET (FP) PO SCH ×2 (10:02→22:05)
[2020-03-03] MEDS: PRENATAL VITAMINS W/ FOLIC ACID TABLET (FP) PO SCH (10:02)
[2020-03-03] MEDS: ASPIRIN 81 MG CHEWABLE TABLETS PO SCH (10:02)
[2020-03-03] MEDS: CYANOCOBALAMIN (VITAMIN B-12) 100 MCG TABLET PO SCH (10:03)
[2020-03-03] MEDS: FERROUS SO4 325 MG TABLET (FP) PO SCH (15:07)
[2020-03-03] MEDS: PATIENT'S OWN MEDICATION (NON-FORMULARY) (Alfuzosin Hcl [Alfuzosin Hcl Er] 10 MG Tab.Er.24 PO SCH (22:05)
[2020-03-03] MEDS: THIAMINE HCL 100 MG TABLET (FP) PO SCH (22:05)
[2020-03-03] MEDS: MIRTAZAPINE 15 MG TABLET (FP) PO SCH (22:05)
[2020-03-03] MEDS: ATORVASTATIN CA 20 MG TABLET (FP) PO SCH (22:05)
[2020-03-03] MEDS: MELATONIN 5 MG TABLETS PO SCH (22:06)
[2020-03-04] MEDS: hydrOXYzine PAMOATE 25 MG CAPSULE (FP) PO SCH ×5 (06:00→22:05)
[2020-03-04] MEDS: FERROUS SO4 325 MG TABLET (FP) PO SCH (09:45)
[2020-03-04] MEDS: ASPIRIN 81 MG CHEWABLE TABLETS PO SCH (09:45)
[2020-03-04] MEDS: METOPROLOL TARTRATE 25 MG TABLET (FP) PO SCH ×2 (09:45→22:05)
[2020-03-04] MEDS: FLUoxetine HCL 20 MG CAPSULE PO SCH (09:46)
[2020-03-04] MEDS: PRENATAL VITAMINS W/ FOLIC ACID TABLET (FP) PO SCH (09:46)
[2020-03-04] MEDS: LISINOPRIL 5 MG TABLET PO SCH ×2 (14:50→22:05)
[2020-03-04] MEDS: CYANOCOBALAMIN (VITAMIN B-12) 100 MCG TABLET PO SCH (14:58)
[2020-03-04] MEDS: PATIENT'S OWN MEDICATION (NON-FORMULARY) (Alfuzosin Hcl [Alfuzosin Hcl Er] 10 MG Tab.Er.24 PO SCH (22:04)
[2020-03-04] MEDS: ATORVASTATIN CA 20 MG TABLET (FP) PO SCH (22:05)
[2020-03-04] MEDS: THIAMINE HCL 100 MG TABLET (FP) PO SCH (22:05)
[2020-03-04] MEDS: MIRTAZAPINE 15 MG TABLET (FP) PO SCH (22:05)
[2020-03-04] MEDS: MELATONIN 5 MG TABLETS PO SCH (22:05)
[2020-03-05] MEDS ORDERED: chlordiazePOXIDE HCL 10 MG CAPSULE PO ONE (05:00)
[2020-03-05] MEDS: hydrOXYzine PAMOATE 25 MG CAPSULE (FP) PO SCH ×2 (06:09→09:04)
[2020-03-05 07:55] VITALS: BP 100/60
[2020-03-05] MEDS: ASPIRIN 81 MG CHEWABLE TABLETS PO SCH (09:03)
[2020-03-05] MEDS: FLUoxetine HCL 20 MG CAPSULE PO SCH (09:03)
[2020-03-05] MEDS: LISINOPRIL 5 MG TABLET PO SCH (09:03)
[2020-03-05] MEDS: FERROUS SO4 325 MG TABLET (FP) PO SCH (09:04)
[2020-03-05] MEDS: METOPROLOL TARTRATE 25 MG TABLET (FP) PO SCH (09:04)
[2020-03-05] MEDS: PRENATAL VITAMINS W/ FOLIC ACID TABLET (FP) PO SCH (09:04)
[2020-03-05] MEDS: CYANOCOBALAMIN (VITAMIN B-12) 100 MCG TABLET PO SCH (09:05)
[2020-03-05 09:11] VITALS: PULSE 56; TEMP 98.4
== END 2020-03-05 09:50 | disposition home or self-care (01) | DRG 775 ==
LOC: YASAS 10:51 → Y3N 13:17
PROVIDERS: ADMIT Allergy & Immunology; ATTEND Allergy & Immunology
PROC: HZ2ZZZZ Detoxification Services for Substance Abuse Treatment (ICD-10-PCS; principal; 2020-02-29)
DX: F10.230 Alcohol dependence with withdrawal, uncomplicated (principal); F10.280 Alcohol dependence with alcohol-induced anxiety disorder; F10.282 Alcohol dependence with alcohol-induced sleep disorder; F19.24 Other psychoactive substance dependence with psychoactive substance-induced mood disorder; I10 Essential (primary) hypertension; I25.10 Atherosclerotic heart disease of native coronary artery without angina pectoris; I25.2 Old myocardial infarction; I83.93 Asymptomatic varicose veins of bilateral lower extremities; N40.0 Benign prostatic hyperplasia without lower urinary tract symptoms; E78.5 Hyperlipidemia, unspecified; D64.9 Anemia, unspecified; E16.2 Hypoglycemia, unspecified; H91.93 Unspecified hearing loss, bilateral; Z85.819 Personal history of malignant neoplasm of unspecified site of lip, oral cavity, and pharynx; Z92.21 Personal history of antineoplastic chemotherapy; Z20.2 Contact with and (suspected) exposure to infections with a predominantly sexual mode of transmission; Z86.19 Personal history of other infectious and parasitic diseases; Z95.5 Presence of coronary angioplasty implant and graft; Z95.2 Presence of prosthetic heart valve; Z87.891 Personal history of nicotine dependence
CPT/HCPCS: 36415; 80048; 80053; 85025; 85027; 86593; 86780; C9803; U0003

== ENCOUNTER 2020-04-24 12:38 | Inpatient (IN) | payer OTHER ==
[2020-04-24 13:49] VITALS: BMI 28.7
[2020-04-24] MEDS ORDERED: IBUPROFEN 400 MG TABLET (FP) PO PRN (14:09)
[2020-04-24] MEDS ORDERED: NICOTINE POLACRILEX 2 MG GUM BUC PRN (14:09)
[2020-04-24] MEDS ORDERED: MENTHOL/PHENOL 1 EACH UD MM PRN (14:09)
[2020-04-24] MEDS ORDERED: ACETAMINOPHEN 325 MG TABLET (FP) PO PRN ×2 (14:09)
[2020-04-24] MEDS ORDERED: chlordiazePOXIDE HCL 25 MG CAPSULE PO PRN (14:09)
[2020-04-24] MEDS ORDERED: ONDANSETRON *ODT* 4 MG TABLET SL PRN (14:09)
[2020-04-24] MEDS ORDERED: MAGNESIUM HYDROX 2400MG/30ML ORAL SUSPENSION 30 ML CUP PO PRN (14:09)
[2020-04-24] MEDS ORDERED: MAG HYDROX/AL HYDROX/SIMETH 30 ML UNIT-DOSE CUP PO PRN (14:09)
[2020-04-24] MEDS ORDERED: MAGNESIUM CITRATE 300 ML BOTTLE PO PRN (14:09)
[2020-04-24] MEDS ORDERED: BISMUTH SUBSALICYLATE 262 MG/15 ML BTL PO PRN (14:09)
[2020-04-24] MEDS ORDERED: METHOCARBAMOL 500 MG TABLET PO PRN (14:09)
[2020-04-24] MEDS: PRENATAL VITAMINS W/ FOLIC ACID TABLET (FP) PO SCH (16:02)
[2020-04-24] MEDS: chlordiazePOXIDE HCL 25 MG CAPSULE PO SCH ×3 (16:04→22:33)
[2020-04-24] MEDS: hydrOXYzine PAMOATE 25 MG CAPSULE (FP) PO SCH ×2 (18:30→22:33)
[2020-04-24] MEDS: ATORVASTATIN CA 20 MG TABLET (FP) PO SCH (22:32)
[2020-04-24] MEDS: TAMSULOSIN HCL 0.4 MG CAP PO SCH (22:32)
[2020-04-24] MEDS: THIAMINE HCL 100 MG TABLET (FP) PO SCH (22:33)
[2020-04-24] MEDS: MELATONIN 5 MG TABLETS PO SCH (22:33)
[2020-04-24] MEDS: METOPROLOL TARTRATE 25 MG TABLET (FP) PO SCH (22:50)
[2020-04-25] MEDS: hydrOXYzine PAMOATE 25 MG CAPSULE (FP) PO SCH ×5 (05:48→22:16)
[2020-04-25] MEDS: chlordiazePOXIDE HCL 25 MG CAPSULE PO SCH ×4 (05:48→22:15)
[2020-04-25 09:49] LABS: POTASSIUM 4.3 mmol/L (3.5-5.1)
[2020-04-25 09:52] LABS: HEMATOCRIT 37.2 % (35.4-49); HEMOGLOBIN 12.8 GM/dL (11.7-16.9); MCH 32.8 pg (25.7-33.7); MCHC 34.3 g/dl (32.0-35.9); MEAN CELL VOLUME 95.5 fl (80-96); MEAN PLT VOLUME 8.1 fl (7.5-11.1); PLATELET COUNT 177 K/MM3 (134-434); RBC 3.89 M/mm3 (4.00-5.60); RDW 14.5 % (11.9-15.9); WHITE BLOOD COUNT 7.2 K/mm3 (4.0-10.0)
[2020-04-25 10:10] LABS: ALBUMIN 4.1 g/dl (3.4-5.0); BLOOD UREA NITROGEN 14.6 mg/dL (7-18); CALCIUM 9.6 mg/dL (8.5-10.1)
[2020-04-25] MEDS: ASPIRIN 81 MG CHEWABLE TABLETS PO SCH (10:10)
[2020-04-25] MEDS: METOPROLOL TARTRATE 25 MG TABLET (FP) PO SCH ×2 (10:10→22:14)
[2020-04-25] MEDS: PRENATAL VITAMINS W/ FOLIC ACID TABLET (FP) PO SCH (10:11)
[2020-04-25] MEDS: FLUoxetine HCL 20 MG CAPSULE PO SCH (10:12)
[2020-04-25 10:13] LABS: CREATININE 1.2 mg/dL (0.55-1.3)
[2020-04-25 10:15] LABS: BILIRUBIN,TOTAL 1.3 mg/dL (0.2-1); TOT PROT 7.2 g/dl (6.4-8.2)
[2020-04-25] MEDS ORDERED: FLU VACCINE (FLULAVAL) PF 60 MCG/0.5 ML SYRINGE 2020-2021 IM ONE (12:00)
[2020-04-25] MEDS ORDERED: MIRTAZAPINE 15 MG TABLET (FP) PO SCH (22:00)
[2020-04-25] MEDS: TAMSULOSIN HCL 0.4 MG CAP PO SCH (22:14)
[2020-04-25] MEDS: THIAMINE HCL 100 MG TABLET (FP) PO SCH (22:15)
[2020-04-25] MEDS: MELATONIN 5 MG TABLETS PO SCH (22:15)
[2020-04-25] MEDS: ATORVASTATIN CA 20 MG TABLET (FP) PO SCH (22:15)
[2020-04-26] MEDS: hydrOXYzine PAMOATE 25 MG CAPSULE (FP) PO SCH ×3 (06:28→13:11)
[2020-04-26] MEDS: chlordiazePOXIDE HCL 25 MG CAPSULE PO SCH ×2 (06:28→10:04)
[2020-04-26 09:58] VITALS: TEMP 97.7
[2020-04-26] MEDS: ASPIRIN 81 MG CHEWABLE TABLETS PO SCH (10:04)
[2020-04-26] MEDS: PRENATAL VITAMINS W/ FOLIC ACID TABLET (FP) PO SCH (10:06)
[2020-04-26] MEDS: METOPROLOL TARTRATE 25 MG TABLET (FP) PO SCH (10:06)
[2020-04-26] MEDS: FLUoxetine HCL 20 MG CAPSULE PO SCH (10:06)
[2020-04-26 13:10] VITALS: BP 108/63; PULSE 64
[2020-04-27] MEDS ORDERED: chlordiazePOXIDE HCL 10 MG CAPSULE PO PRN
[2020-04-27] MEDS ORDERED: chlordiazePOXIDE HCL 10 MG CAPSULE PO SCH (05:00)
[2020-04-28] MEDS ORDERED: chlordiazePOXIDE HCL 10 MG CAPSULE PO SCH (05:00)
[2020-04-29] MEDS ORDERED: chlordiazePOXIDE HCL 10 MG CAPSULE PO ONE (05:00)
== END 2020-04-26 15:37 | disposition home or self-care (01) | DRG 775 ==
LOC: YASAS 12:38 → Y6N 14:46
PROVIDERS: ADMIT Allergy & Immunology; ATTEND Allergy & Immunology
PROC: HZ2ZZZZ Detoxification Services for Substance Abuse Treatment (ICD-10-PCS; principal; 2020-04-24)
DX: F10.230 Alcohol dependence with withdrawal, uncomplicated (principal); F10.282 Alcohol dependence with alcohol-induced sleep disorder; F19.24 Other psychoactive substance dependence with psychoactive substance-induced mood disorder; F41.9 Anxiety disorder, unspecified; F32.9 Major depressive disorder, single episode, unspecified; D50.9 Iron deficiency anemia, unspecified; E78.5 Hyperlipidemia, unspecified; I25.10 Atherosclerotic heart disease of native coronary artery without angina pectoris; I10 Essential (primary) hypertension; Z95.5 Presence of coronary angioplasty implant and graft; I25.2 Old myocardial infarction; Z95.2 Presence of prosthetic heart valve; I83.93 Asymptomatic varicose veins of bilateral lower extremities; N40.1 Benign prostatic hyperplasia with lower urinary tract symptoms; R39.11 Hesitancy of micturition; N28.9 Disorder of kidney and ureter, unspecified; Z86.19 Personal history of other infectious and parasitic diseases; Z85.819 Personal history of malignant neoplasm of unspecified site of lip, oral cavity, and pharynx
CPT/HCPCS: 36415; 80053; 85027; 86593; 86780; C9803; G0008; Q2036; U0003

== ENCOUNTER 2020-06-10 18:35 | Inpatient (IN) | payer OTHER ==
[2020-06-10] MEDS ORDERED: MAGNESIUM CITRATE 300 ML BOTTLE PO PRN (20:21)
[2020-06-10] MEDS ORDERED: MENTHOL/PHENOL 1 EACH UD MM PRN (20:21)
[2020-06-10] MEDS ORDERED: MAG HYDROX/AL HYDROX/SIMETH 30 ML UNIT-DOSE CUP PO PRN (20:21)
[2020-06-10] MEDS ORDERED: MAGNESIUM HYDROX 2400MG/30ML ORAL SUSPENSION 30 ML CUP PO PRN (20:21)
[2020-06-10] MEDS ORDERED: ACETAMINOPHEN 325 MG TABLET (FP) PO PRN ×2 (20:21)
[2020-06-10] MEDS ORDERED: ONDANSETRON *ODT* 4 MG TABLET SL PRN (20:21)
[2020-06-10] MEDS ORDERED: diazePAM 5 MG TABLET PO PRN (20:25)
[2020-06-10 21:04] VITALS: BMI 28.7
[2020-06-10] MEDS: ATORVASTATIN CA 20 MG TABLET (FP) PO SCH (22:17)
[2020-06-10] MEDS: THIAMINE HCL 100 MG TABLET (FP) PO SCH (22:17)
[2020-06-10] MEDS: MELATONIN 5 MG TABLETS PO SCH (22:18)
[2020-06-10] MEDS: diazePAM 5 MG TABLET PO SCH (22:18)
[2020-06-11] MEDS: diazePAM 5 MG TABLET PO SCH ×4 (06:00→22:16)
[2020-06-11] MEDS: ASPIRIN 81 MG CHEWABLE TABLETS PO SCH (09:58)
[2020-06-11] MEDS: METOPROLOL TARTRATE 25 MG TABLET (FP) PO SCH ×2 (09:58→22:16)
[2020-06-11] MEDS: PRENATAL VITAMINS W/ FOLIC ACID TABLET (FP) PO SCH (09:58)
[2020-06-11 10:08] LABS: HEMATOCRIT 36.6 % (35.4-49); HEMOGLOBIN 12.6 GM/dL (11.7-16.9); MCH 32.5 pg (25.7-33.7); MCHC 34.5 g/dl (32.0-35.9); MEAN PLT VOLUME 8.1 fl (7.5-11.1); PLATELET COUNT 330 K/MM3 (134-434); RBC 3.89 M/mm3 (4.00-5.60); RDW 13.6 % (11.9-15.9); WHITE BLOOD COUNT 10.2 K/mm3 (4.0-10.0)
[2020-06-11 10:12] LABS: POTASSIUM 4.3 mmol/L (3.5-5.1)
[2020-06-11 10:24] LABS: ALBUMIN 4.1 g/dl (3.4-5.0)
[2020-06-11 10:25] LABS: BILIRUBIN,TOTAL 0.7 mg/dL (0.2-1); TOT PROT 7.6 g/dl (6.4-8.2)
[2020-06-11 10:26] LABS: CALCIUM 9.2 mg/dL (8.5-10.1)
[2020-06-11 10:27] LABS: CREATININE 1.3 mg/dL (0.55-1.3)
[2020-06-11] MEDS: MULTIVITAMINS (DAILY MVI) TABLET (FP) PO SCH (11:24)
[2020-06-11] MEDS: FINASTERIDE 5 MG TABLET (FP) PO SCH (11:24)
[2020-06-11] MEDS: ATORVASTATIN CA 20 MG TABLET (FP) PO SCH (22:16)
[2020-06-11] MEDS: THIAMINE HCL 100 MG TABLET (FP) PO SCH (22:16)
[2020-06-11] MEDS: MELATONIN 5 MG TABLETS PO SCH (22:16)
[2020-06-12] MEDS ORDERED: diazePAM 5 MG TABLET PO SCH (06:00)
[2020-06-12] MEDS ORDERED: BISMUTH SUBSALICYLATE 524 MG/30 ML UD PO ONE (07:45)
[2020-06-12 09:34] VITALS: BP 158/76; PULSE 89; TEMP 98.1
[2020-06-12] MEDS: METOPROLOL TARTRATE 25 MG TABLET (FP) PO SCH (10:53)
[2020-06-12] MEDS: ASPIRIN 81 MG CHEWABLE TABLETS PO SCH (10:53)
[2020-06-12] MEDS: PRENATAL VITAMINS W/ FOLIC ACID TABLET (FP) PO SCH (10:54)
[2020-06-12] MEDS: MULTIVITAMINS (DAILY MVI) TABLET (FP) PO SCH (10:54)
[2020-06-12] MEDS: FINASTERIDE 5 MG TABLET (FP) PO SCH (10:54)
[2020-06-13] MEDS ORDERED: diazePAM 5 MG TABLET PO ONE (06:00)
== END 2020-06-12 10:50 | disposition left against medical advice (07) | DRG 770 ==
LOC: YASAS 18:35 → Y6N 21:39
PROVIDERS: ADMIT Allergy & Immunology; ATTEND Allergy & Immunology
PROC: HZ2ZZZZ Detoxification Services for Substance Abuse Treatment (ICD-10-PCS; principal; 2020-06-10)
DX: F10.230 Alcohol dependence with withdrawal, uncomplicated (principal); F41.8 Other specified anxiety disorders; F32.9 Major depressive disorder, single episode, unspecified; E78.5 Hyperlipidemia, unspecified; I25.10 Atherosclerotic heart disease of native coronary artery without angina pectoris; I10 Essential (primary) hypertension; I25.2 Old myocardial infarction; Z95.5 Presence of coronary angioplasty implant and graft; Z95.2 Presence of prosthetic heart valve; Z87.891 Personal history of nicotine dependence; Z85.21 Personal history of malignant neoplasm of larynx; Z98.890 Other specified postprocedural states
CPT/HCPCS: 36415; 80053; 85027; 86593; 86780; C9803; U0003; U0005